=== PATIENT | female | born 1955 | race Caucasian/White ===

== ENCOUNTER 2017-04-28 10:10 | Observation (INO) ==
[2017-04-28] MEDS ORDERED: Aspirin 81 MG TAB.CHEW PO ONE (10:24)
--- NOTE | 2017-04-28 10:29 | Emergency Department Note ---
Disposition Clinical Impression: Mitral valve prolapse Chest pain Qualifiers: Chest pain type: unspecified Qualified Code(s): R07.9 - Chest pain, unspecified Dyspnea Qualifiers: Dyspnea type: unspecified Qualified Code(s): R06.00 - Dyspnea, unspecified Disposition: Admitted As Inpatient Condition: Good Referrals: Fly Stevenson DO [Primary Care Provider] - Time of Disposition: 13:56 Chest Pain HPI - General Chief Complaint: ED Chest Pain Stated Complaint: chest discomfort Time Seen by Provider: 04/28/17 10:15 Source: patient Limitations: no limitations Vital Signs Reviewed: Yes Nursing Notes Reviewed: Yes - History of Present Illness HPI Narrative: 61-year-old female presents to emergency department with 2 weeks history of chest pain, shortness of breath, fluttering in chest, arm tingling. Patient has history of mitral valve prolapse, TIAs, carotid stenosis. Patient came in today because she was concerned that this could be related to her heart. Patient states that her symptoms are now not necessarily related to exertion. Patient states that her mitral valve prolapse is being medically managed at this time, and there were no plans for surgery in the future. Severity scale (1-10): 0 - Related Data Home Medications Medication Instructions Recorded Confirmed Atorvastatin Calcium [Lipitor] 20 mg PO HS 08/31/16 04/28/17 Cetirizine HCl 10 mg PO DAILY 08/31/16 04/28/17 Cyanocobalamin (Vitamin B-12) 1,000 mcg PO 2XW 08/31/16 04/28/17 [Vitamin B12] Lisinopril [Zestril] 5 mg PO DAILY 08/31/16 04/28/17 Omeprazole [PriLOSEC] 20 mg PO DAILY 08/31/16 04/28/17 Carvedilol 12.5 mg PO BID 04/28/17 04/28/17 Clobetasol Propionate [Temovate] 15 gm TP HS 04/28/17 04/28/17 Gentamicin Oint [Garamycin] 1 appl TP HS 04/28/17 04/28/17 predniSONE [PredniSONE] 10 mg PO AD 04/28/17 04/28/17 Previous Rx's Medication Instructions Recorded Ibuprofen [Motrin] 600 mg PO Q6HR #20 tab 09/03/16 Allergies Allergy/AdvReac Type Severity Reaction Status Date / Time apixaban [From Eliquis] Allergy Hives Verified 04/28/17 10:11 cefdinir Allergy Hives Verified 04/28/17 10:11 codeine Allergy Hives Verified 04/28/17 10:11 naproxen [From Naprosyn] Allergy Hives Verified 04/28/17 10:11 Penicillins Allergy Hives Verified 04/28/17 10:11 rivaroxaban [From Xarelto] Allergy Hives Verified 04/28/17 10:11 Sulfa (Sulfonamide Allergy Hives Verified 04/28/17 10:11 Antibiotics) Warfarin [From Coumadin] Allergy Hives Verified 04/28/17 10:11 Chest Pain PMH - Past Medical History Medical history: Reports: CVA, GERD, hypertension, kidney stones, other Surgical history: Reports: cholecystectomy, hysterectomy, other Psychiatric history: Reports: no psych history - Social History Smoking Status: Never smoker Alcohol use: Reports: none Drug use: Reports: none Physical Exam General: Well Appearing 61-year-old female, in no acute distress Head: autraumatic, EOMI, no conjuncitval pallor, no scleral icterus, Mouth: oral mucous membranes moist Neck: neck soft, trachea midline Chest:: Equal chest wall rise Lungs: Normal lungs sounds bilaterally, no wheezes, no respiratory distress Heart: normal heart sounds, normal rate and rhythm, Abdomen: soft, non-tender, no rigidity, no guarding, no rebdound tenderness Lower Extremities: no pedal edema, calves non-tender Integumentary: Skin warm, dry, and intact Neuro: Alert and oriented to person place and time. GCS 15. No focal neurologic deficits on exam. Cranial nerves II through XII grossly intact. No pronator drift. Upper and lower sugar is 5 out of 5 strength bilaterally. Sensation intact throughout. Psych: normal affect, normal mood - General Limitations: no limitations General appearance: alert, in no apparent distress Course Vital Signs Temperature 97.7 F 04/28/17 10:11 Pulse Rate 78 04/28/17 10:11 Respiratory Rate 15 04/28/17 10:11 Blood Pressure 171/99 04/28/17 10:11 O2 Sat by Pulse Oximetry 96 04/28/17 10:11 Temperature 97.7 F 04/28/17 10:11 Pulse Rate 69 04/28/17 14:14 Respiratory Rate 16 04/28/17 14:14 Blood Pressure 131/99 04/28/17 14:14 O2 Sat by Pulse Oximetry 99 04/28/17 14:14 Oxygen Delivery Oxygen Delivery Room Air Chest Pain - MDM Narrative Medical decision making narrative: 61-year-old female presents to emergency department with concern for worsening shortness of breath, chest pain, chest fluttering, tingling down her left arm for the last couple weeks that has gradually worsened. This is concerning for ACS. An echocardiogram not reveal any acute ST changes suggestive of ischemia. Troponin was negative. Chest x-ray revealed mild nonspecific patchy reticulonodular densities that could represent possible bronchitis. Clinically , her lungs sound clear and she has not complained of any cough. Patient does have a past medical history of mitral valve prolapse. Has a echocardiogram that reveals elevated right ventricular pressures. At this time, this patient is no acute distress. However, she does have certain risk factors as she has atherosclerotic disease of the right carotid artery, history of myocardial infarction in her father at age of 73, hypertension. We obtained a CT scan of the head due to this patient's history of TIAs and sudden onset numbness and tingling. However, this numbness and tingling in the left arm is more associated with this patient's shortness of breath, chest pain, chest fluttering and I think this is more cardiac in nature. CT scan of the head did not reveal any intracranial hemorrhage. 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 I spoke with Dr. Parrish, the program director cable television that saw senior environmental technician, and he stated that he would recommend admission of this patient due to her risk factors and history of present illness. There is also concern about this patient's history of mitral valve prolapse and possible concern that her symptoms are getting worse with her condition. I spoke with Dr. Cervantes and my attending regarding this concern. I admitted the patient to the hospitalist and he agreed to accept this admission. I spoke with the patient at bedside and she agreed to come in for admission as well for further evaluation. Patient was symptomatically stable not in any acute distress at this time. Patient was given aspirin here in the emergency department. Chest X-Ray 04/28/17 10:24 IMPRESSION: Mild nonspecific patchy reticulonodular densities which could represent minimal basilar atelectasis or possible bronchitis/bronchiolitis. No lobar pneumonia. D/ / 04/28/2017 11:38:44 Sarbjit Molina MD / earlizette Interpreting Provider: Sarbjit Molina MD Head CT 04/28/17 10:49 IMPRESSION: 1. There is no acute intracranial hemorrhage or global mass effect. 2. 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 There is slight herniation of the left parietal cortex into this defect with subtle adjacent cortical atrophy. Overall this appears stable compared to the prior exam. D/ / 04/28/2017 12:19:10 Sarbjit Molina MD / amber Interpreting Provider: Sarbjit Molina MD Vital Signs Temperature 97.7 F 04/28/17 10:11 Pulse Rate 78 04/28/17 10:11 Respiratory Rate 15 04/28/17 10:11 Blood Pressure 171/99 04/28/17 10:11 O2 Sat by Pulse Oximetry 96 04/28/17 10:11 Temperature 97.7 F 04/28/17 10:11 Pulse Rate 66 04/28/17 12:54 Respiratory Rate 15 04/28/17 12:54 Blood Pressure 179/98 04/28/17 12:54 O2 Sat by Pulse Oximetry 99 04/28/17 12:54 Oxygen Delivery Oxygen Delivery Room Air - Medical Records Medical records reviewed: Yes I reviewed the patient's medical records. - Lab Data Lab results reviewed: Yes I reviewed the patient's lab results. Result diagrams: 04/28/17 10:37 04/28/17 10:37 Lab Results 04/28/17 04/28/17 04/28/17 Range/Units 10:37 10:37 10:37 WBC 4.6 (4.3-11.1) K/mcL RBC 4.47 (3.82-4.97) M/mcL Hgb 12.6 (11.5-15.4) g/dL Hct 39.4 (35.3-44.9) % MCV 88.1 (83.0-100.0) fL MCH 28.2 (28.0-33.3) pg MCHC 32.0 (31.6-35.5) g/dL RDW 13.0 (11.5-14.5) % Plt Count 202 (140-400) K/mcL MPV 10.7 (9.4-12.4) fL Immature Gran % 0.2 (0-4) % Seg Neutrophils % 61.0 % Lymphocytes % 25.7 % Monocytes % 9.1 % Eosinophils % 3.3 % Basophils % 0.7 % Neutrophils # 2.8 (1.6-8.9) K/mcL Lymphocytes # 1.2 (0.6-4.6) K/mcL Monocytes # 0.4 (0.0-1.3) K/mcL Eosinophils # 0.2 (0.0-0.6) K/mcL Basophils # 0.0 (0.0-0.2) K/mcL PT 10.7 (9.4-12.1) Seconds INR 1.0 APTT 28.8 (26.0-36.0) Seconds D-Dimer 487 (0-500) ng/mLFEU Sodium 141 (136-145) mEq/L Potassium 4.0 (3.5-4.5) mEq/L Chloride 107 (98-109) mEq/L Carbon Dioxide 27 (19-29) mEq/L BUN 15 (7-20) mg/dL Creatinine 0.64 (0.57-1.11) mg/dL Est GFR ( Amer) > 60 (> 60) Est GFR (Non-Af Amer) > 60 (> 60) BUN/Creatinine Ratio 23 (6-26) Glucose 97 (70-99) mg/dL Calculated Osmolality 293 (280-300) Calcium 9.0 (8.6-10.8) mg/dL Troponin I (0-0.03) ng/mL 04/28/17 Range/Units 10:37 WBC (4.3-11.1) K/mcL RBC (3.82-4.97) M/mcL Hgb (11.5-15.4) g/dL Hct (35.3-44.9) % MCV (83.0-100.0) fL MCH (28.0-33.3) pg MCHC (31.6-35.5) g/dL RDW (11.5-14.5) % Plt Count (140-400) K/mcL MPV (9.4-12.4) fL Immature Gran % (0-4) % Seg Neutrophils % % Lymphocytes % % Monocytes % % Eosinophils % % Basophils % % Neutrophils # (1.6-8.9) K/mcL Lymphocytes # (0.6-4.6) K/mcL Monocytes # (0.0-1.3) K/mcL Eosinophils # (0.0-0.6) K/mcL Basophils # (0.0-0.2) K/mcL PT (9.4-12.1) Seconds INR APTT (26.0-36.0) Seconds D-Dimer (0-500) ng/mLFEU Sodium (136-145) mEq/L Potassium (3.5-4.5) mEq/L Chloride (98-109) mEq/L Carbon Dioxide (19-29) mEq/L BUN (7-20) mg/dL Creatinine (0.57-1.11) mg/dL Est GFR ( Amer) (> 60) Est GFR (Non-Af Amer) (> 60) BUN/Creatinine Ratio (6-26) Glucose (70-99) mg/dL Calculated Osmolality (280-300) Calcium (8.6-10.8) mg/dL Troponin I 0.01 (0-0.03) ng/mL - Radiology Data Radiology results reviewed: Yes I reviewed the patient's radiology results. - EKG Data EKG attestation: Yes I reviewed and interpreted this EKG. EKG results narrative: Ventricular rate 72 bpm, VT interval 149 ms, QRS duration 96, QT 387 ms, QTC 411 ms, normal axis. Sinus rhythm with a ventricular rate of 72 bpm. There are no ischemic ST changes noted on this electrocardiogram. This study was compared to one performed on September 12, 2016 Heart Score - Score History: Slightly Suspicious EKG: Normal Age: 45-65 Risk Factors: Equal/Greater than 3 risk factor or history of atherosclerotic disease Troponin: Less than normal limit HEART Score Total: 3 Attestation Statement - Attestation Attestation: I, Rivas Lopez DO, examined this patient [id number] and my medical decision-making was reviewed with Dr. Deepak Alvarez, Resident Physician. I agree with the documented findings, disposition and treatment plan as described except to the extent set forth below. Please see my progress notes for details. 61-year-old female presents emergency room for evaluation of intermittent exertional dyspnea. Vital signs on presentation otherwise unremarkable. Lungs are clear heart is regular abdomen is soft. Patient has no pitting edema on physical exam. She is alert she is oriented she speaks in full sentences. Her main concern for presentation her today is that she had tingling in her left arm. She is a remote history of a TIA with no official diagnosis or evaluation. Patient did have carotid ultrasounds done within the last 5 years ago which show some mild stenosis in the right carotid artery. Patient physical exam here has no pain on movement of the neck no reproducible neurologic symptoms her pupils are equal round and reactive to light her ocular muscles are intact. She has no signs of facial asymmetry. Her EKG is normal in comparison to previous. Currently she has no chest pain or shortness of breath. The symptoms appear to be intermittent and occasionally with exertion. Patient does have mitral valve prolapse. She has not had an echo or stress test performed echo showed left ventricular ejection fraction of 60%. She does have mitral regurg as well as aortic regurgitation. Also has mild pulmonary hypertension. Chest x-ray shows possibility of bronchitis. Discussion was had with the program director cable television and then reevaluation with the patient with CT imaging results. Discussed disposition. See detailed documentation of physical exam, medical intervention, medical decision-making and disposition and the resident physician's note [id number] Patient discussed with cardiology as well as hospitalist for admission. Patient will be evaluated for pulmonary congestion secondary to mitral valve regurgitation and aortic regurgitation this time. No other concerns or issues noted in his treatment course. Hospitals happy to admit for definitive management
[2017-04-28 10:48] LABS: Basophils % 0.7 %; Eosinophils # 0.2 K/mcL (0.0-0.6); Eosinophils % 3.3 %; Hematocrit 39.4 % (35.3-44.9); Hemoglobin 12.6 g/dL (11.5-15.4); Immature Granulocytes % 0.2 % (0-4); Lymphocytes # 1.2 K/mcL (0.6-4.6); Lymphocytes % 25.7 %; Mean Corpuscular Hemoglobin 28.2 pg (28.0-33.3); Mean Corpuscular Volume 88.1 fL (83.0-100.0); Mean Platelet Volume 10.7 fL (9.4-12.4); Monocytes # 0.4 K/mcL (0.0-1.3); Monocytes % 9.1 %; Neutrophils # 2.8 K/mcL (1.6-8.9); Platelet Count 202 K/mcL (140-400); Red Blood Count 4.47 M/mcL (3.82-4.97)
[2017-04-28 10:58] LABS: Prothrombin Time 10.7 Seconds (9.4-12.1)
[2017-04-28 11:00] LABS: Activated Partial Thrombo Time 28.8 Seconds (26.0-36.0); BUN/Creatinine Ratio 23 (6-26); Blood Urea Nitrogen 15 mg/dL (7-20); Carbon Dioxide 27 mEq/L (19-29); Chloride 107 mEq/L (98-109); Glucose 97 mg/dL (70-99); Osmolality,Calculated 293 (280-300); Sodium 141 mEq/L (136-145); eGFR For African Americans > 60 (> 60); eGFR For Non-African Americans > 60 (> 60)
--- NOTE | 2017-04-28 14:44 | Internal Med History&Physical ---
Date of Encounter: 04/28/17 Time of Encounter: 14:42 Assessment and Plan (1) Chest pain Current visit: Yes Status: Acute 61, female Admitted with chest pain. She has multiple comorbid factors. Admitted with chest pain. Echocardiogram: 09/29/2016: Ejection fraction 60%, RVSP 38, mildly dilated left atrium, [id number] aortic regurgitation Carotid ultrasound: Bilateral carotid no stenosis. Plan: -Admitted as observation. -We will resume home medication. -If the 3 troponins are negative then please consider stress test. -Stress test is positive please call cardiology. -If stress test is negative patient can go home but patient needs a follow up with cardiology/pulmonary as her RVSP is 38 -I have explained this point the patient and patient verbalized understanding. -I examined this patient in room #32 in the emergency room. Of note: This patient has a RVSP of 38. This patient is taking steroids and not sure what is the reason for the same. Qualifiers: Chest pain type: unspecified Qualified Code(s): R07.9 - Chest pain, unspecified (2) Dyspnea Current visit: Yes Status: Acute Likely secondary to right-sided pathology. Qualifiers: Dyspnea type: unspecified Qualified Code(s): R06.00 - Dyspnea, unspecified (3) Mitral valve prolapse Current visit: Yes Status: Acute Asymptomatic (4) DVT prophylaxis Current visit: Yes Status: Acute scd Medical decision making. This patient has a moderate to severe risk of worsening in spite of being on appropriate medication due to underlying comorbid conditions. Internal Medicine - H&P: HPI Chief complaint: Chest pain Admitted From: Emergency Dept Plans for Post Hospital Care: Home History of present illness: PCP: Dr. Ponce. Brief past medical history: Hypertension, GERD, old CVA, previous renal stones. History of present illness: Patient is ongoing chest pain for 2 weeks which is kind of a generalized in nature. Patient complains that since last evening she has a more specific left precordial chest pain which is nonradiating, localized , associated with the movement and relieved by rest. Patient to call her primary care provider this morning but unfortunately primary care provider's office told patient to go to the emergency room as this was the chest pain issue. Patient also complains that occasionally she will feel nauseous. Patient was declining that she has abdominal pain, nausea, vomiting, dizziness and diarrhea. Workup in the emergency department: Patient was evaluated in the emergency department. Basic labs were drawn. Her symptoms was persistent. Reason for admission: Chest pain rule out ACS. Family history: Noncontributory Past Med Surg Social Fam HX - Past Medical History Medical history: CVA, GERD, hypertension, kidney stones, other Psychiatric history: no psych history - Past Surgical History Surgical History: cholecystectomy, hysterectomy, other - Social History Smoking Status: Never smoker Smokeless Tobacco Status: No Alcohol use: none Drug use: none Internal Medicine - H&P: Meds Atorvastatin Calcium [Lipitor] 20 mg PO HS 08/31/16 [History] Cetirizine HCl 10 mg PO DAILY 08/31/16 [History] Cyanocobalamin (Vitamin B-12) [Vitamin B12] 1,000 mcg PO 2XW 08/31/16 [History] Lisinopril [Zestril] 5 mg PO DAILY 08/31/16 [History] Omeprazole [PriLOSEC] 20 mg PO DAILY 08/31/16 [History] Ibuprofen [Motrin] 600 mg PO Q6HR #20 tab 09/03/16 [Rx] Carvedilol 12.5 mg PO BID 04/28/17 [History] Clobetasol Propionate [Temovate] 15 gm TP HS 04/28/17 [History] Gentamicin Oint [Garamycin] 1 appl TP HS 04/28/17 [History] predniSONE [PredniSONE] 10 mg PO AD 04/28/17 [History] 3 Allergy/AdvReac Type Severity Reaction Status Date / Time apixaban [From Eliquis] Allergy Hives Verified 04/28/17 10:11 cefdinir Allergy Hives Verified 04/28/17 10:11 codeine Allergy Hives Verified 04/28/17 10:11 naproxen [From Naprosyn] Allergy Hives Verified 04/28/17 10:11 Penicillins Allergy Hives Verified 04/28/17 10:11 rivaroxaban [From Xarelto] Allergy Hives Verified 04/28/17 10:11 Sulfa (Sulfonamide Allergy Hives Verified 04/28/17 10:11 Antibiotics) Warfarin [From Coumadin] Allergy Hives Verified 04/28/17 10:11 All Systems PM: A 10-system review of systems was performed and is negative for pertinent findings except as documented above in the HPI. - Constitutional Constitutional: no chills, no fever(s), no night sweats - EENT Eyes: no change in vision, no discharge, no pain, no photophobia Ears: no ear discharge, no ear pain, no tinnitus Nose, mouth and throat: no dysphagia, no nasal discharge, no neck pain, no sore throat - Cardiovascular Cardiovascular ROS IM: chest pain, diaphoresis, dyspnea, lightheadedness, no palpitations, no syncope - Respiratory Respiratory: no cough, no dyspnea, no wheezing, no excessive phlegm production - Gastrointestinal Gastrointestinal: no abdominal pain, no diarrhea, no hematemesis, no hematochezia, no melena, no nausea, no vomiting - Genitourinary Genitourinary: no change in urinary stream, no dysuria, no flank pain, no hematuria - Musculoskeletal Musculoskeletal ROS IM: no numbness, no tingling - Integumentary Integumentary IM: no rash, no unusual bruising - Neurological Neurological ROS: no confusion, no convulsions, no focal weakness, no numbness, no tingling, no tremor(s) - Hematologic/Lymphatic Hematologic/Lymphatic: no easy bruising - Constitutional Vitals: Temp Pulse Resp BP Pulse Ox 97.7 F 69 16 131/99 99 04/28/17 10:11 04/28/17 14:14 04/28/17 14:14 04/28/17 14:14 04/28/17 14:14 General appearance: Present: A&O X 3, pleasant, no acute distress, answers questions appropriately - Head Head exam: Present: atraumatic, normocephalic - Eye Eye exam: Present: PERRL, conjuntiva pink, sclera anicteric Pupils: Present: PERRL - Neck Neck exam general surgery: Present: supple, trachea midline. Absent: lymphadenopathy - Respiratory Respiratory exam: Present: CTAB. Absent: accessory muscle use, rales, rhonchi, wheezes - Cardiovascular Cardiovascular exam: Present: RRR, +S1, +S2. Absent: diastolic murmur, gallop, rubs, systolic murmur - GI/Abdominal GI/Abdominal exam: Present: normal bowel sounds, soft, no peritoneal signs. Absent: distended, tenderness - Extremities Exam Extremities exam: Present: warm, radial pulses palpable and symmetrical. Absent : calf tenderness, cyanotic, pedal edema - Neurological Exam Neurological exam: Present: CN II-XII intact, oriented X3, no focal deficits. Absent: pronater drift, facial droop, speech deficit - Skin Skin exam: Present: dry, intact Internal Med - H&P Results - Labs CBC & Chem 7: 04/28/17 10:37 04/28/17 10:37
[2017-04-28] MEDS ORDERED: Naloxone 0.4 MG/ML INJ IVP PRN (14:45)
[2017-04-28] MEDS ORDERED: Mag Hydrox/Al Hydrox/Simeth 30 ML UDC PO PRN (14:45)
[2017-04-28] MEDS ORDERED: Acetaminophen 325 MG TABLET PO PRN (14:45)
[2017-04-28] MEDS: predniSONE 10 MG TABLET PO SCH (17:17)
--- NOTE | 2017-04-28 18:53 | Electrocardiograph Report ---
[place] [id number] Test Date: 2017-04-28 Pat Name: Jazmyne Gooden Department: 102 Room: 3B Gender: F Internal Medicine Nurse Practitioner: Vic : 1955 Requested By: Deepak Alvarez Order Number: [id number] Reading MD: Papi Parrish MD Measurements Intervals [place] Rate: 72 P: 54 DE: 149 QRS: 12 QRSD: 96 T: 37 QT: 387 QTc: 411 Interpretive Statements SINUS RHYTHM Poor R wave progression Electronically Signed On 04-28-2017 18:52:03 EST by Papi Parrish MD
[2017-04-28] MEDS ORDERED: CLOBETASOL PROPIONATE 15 GM TUBE TP SCH (21:00)
[2017-04-29 04:21] LABS: INR 1.1; Prothrombin Time 11.3 Seconds (9.4-12.1)
[2017-04-29 04:24] LABS: Activated Partial Thrombo Time 28.7 Seconds (26.0-36.0)
[2017-04-29 04:38] LABS: Alanine Aminotransferase 34 Units/L (0-55); Albumin 3.5 g/dL (3.5-5.0); Albumin/Globulin Ratio 1.2 (1.1-2.2); Alkaline Phosphatase 95 Units/L (38-126); Aspartate Amino Transferase 21 Units/L (5-34); BUN/Creatinine Ratio 24 (6-26); Bilirubin,Total 0.6 mg/dL (0.2-1.2); Blood Urea Nitrogen 15 mg/dL (7-20); Calcium 8.8 mg/dL (8.6-10.8); Carbon Dioxide 24 mEq/L (19-29); Chloride 108 mEq/L (98-109); Chol/HDL Ratio 2.1 (0-4.9); Cholesterol 144 mg/dL (< 200); Globulin 2.9 g/dL (2.4-3.5); Glucose 109 mg/dL (70-99); HDL Cholesterol 70 mg/dL (40-59); LDL Cholesterol,Calculated 68 mg/dL (0-99); Magnesium 2.1 mg/dL (1.6-2.6); Osmolality,Calculated 293 (280-300); Phosphorous 3.9 mg/dL (2.3-4.7); Potassium 4.1 mEq/L (3.5-4.5); Sodium 141 mEq/L (136-145); Total Protein 6.4 g/dL (6.0-8.3); Triglycerides 29 mg/dL (< 150); eGFR For African Americans > 60 (> 60); eGFR For Non-African Americans > 60 (> 60)
[2017-04-29 04:49] LABS: Basophils % 0.2 %; Eosinophils % 0.2 %; Hematocrit 38.2 % (35.3-44.9); Hemoglobin 12.2 g/dL (11.5-15.4); Immature Granulocytes % 0.2 % (0-4); Lymphocytes % 20.6 %; Mean Corpuscular HGB Conc 31.9 g/dL (31.6-35.5); Mean Corpuscular Hemoglobin 27.9 pg (28.0-33.3); Mean Corpuscular Volume 87.4 fL (83.0-100.0); Mean Platelet Volume 11.3 fL (9.4-12.4); Monocytes # 0.3 K/mcL (0.0-1.3); Monocytes % 5.5 %; Neutrophils # 3.4 K/mcL (1.6-8.9); Platelet Count 202 K/mcL (140-400); Red Blood Count 4.37 M/mcL (3.82-4.97); Segmented Neutrophils % 73.3 %
[2017-04-29] MEDS ORDERED: [UNRECOGNIZED DRUG - OTHER] TP SCH (09:15)
[2017-04-29] MEDS: CLOBETASOL PROPIONATE 15 GM TUBE TP SCH ×3 (09:20→20:07)
[2017-04-29] MEDS ORDERED: Regadenoson 0.4 MG/5 ML SYRINGE IVP ONE (09:47)
[2017-04-29] MEDS: Loratadine 10 MG TABLET PO SCH (14:24)
[2017-04-29] MEDS: predniSONE 10 MG TABLET PO SCH (14:29)
--- NOTE | 2017-04-29 17:41 | Internal Med Progress Note ---
Date of Encounter: 04/29/17 Time of Encounter: 15:25 - Assessment and plan (1) Chest pain Current Visit: Yes Status: Acute Assessment and plan: Patient reports generalized chest pain for 2 weeks. Patient reports that last evening prior to arrival, she had left chest pain is nonradiating, associated with movement, relieved by rest. She reports intermittent nausea, no vomiting, diarrhea, diaphoresis or shortness of breath. She denies chest pain since prior to arrival. Chest x-ray shows mild, nonspecific densities which could be atelectasis or possible bronchitis bronchiolitis. There is no pneumonia noted. Patient denies cough, fever, chills, burning in chest, or shortness of breath that would indicate a viral or bacterial process. Troponins were negative 3. EKG was sinus rhythm with a rate of 72, GA interval 149, QRS 96, QTC 411. Echocardiogram in September, as stated above. Stress test was positive for ischemia, there is a small sized, mildly intense reversible anteroapical defect consistent with mild ischemia. Patient has a gated EF of 55%. There is no evidence of TID, no LV dilation, no high risk features. Cardiology has been consulted, they will see patient in the morning. Patient is aware of this and questions were answered. 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 Qualifiers: Chest pain type: unspecified Qualified Code(s): R07.9 - Chest pain, unspecified (2) Mitral valve prolapse Current Visit: Yes Status: Acute Assessment and plan: Asymptomatic. Patient will see cardiology tomorrow. Patient had echocardiogram in September, that showed normal systolic function with an LVEF of 60%, mild LV DD, mildly dilated left atrium, [id number] AR, mild MR, mild pulmonary hypertension with an estimated RVSP 38. (3) DVT prophylaxis Current Visit: Yes Status: Acute Assessment and plan: Early ambulation. SCDs ordered. - Subjective Interval history: Patient was seen and assessed at 1525 this afternoon. She denies any chest pain. She states that she feels better today. Denies any nausea, vomiting, diaphoresis, diarrhea, abdominal pain, dizziness, chest pain or shortness of breath, syncope or near-syncope. She is aware that she will see cardiology today and that she had an abnormal stress test. All questions were answered, patient was likely be discharged tomorrow after she is seen by cardiology. - Constitutional Vitals: Temp Pulse Resp BP Pulse Ox 98.7 F 70 15 158/85 97 04/29/17 15:21 04/29/17 15:21 04/29/17 15:21 04/29/17 15:21 04/29/17 15:21 General appearance: Present: cooperative, A&O X 3, pleasant, no acute distress, answers questions appropriately - Head Head exam: Present: atraumatic, normocephalic - Eye Eye exam: Present: normal appearance, conjuntiva pink, sclera anicteric. Absent : nystagmus - Neck Neck exam general surgery: Present: supple, trachea midline - Respiratory Respiratory exam: Present: CTAB. Absent: accessory muscle use, decreased breath sounds, rales, respiratory distress, rhonchi, wheezes - Cardiovascular Cardiovascular exam: Present: RRR, +S1, +S2. Absent: diastolic murmur, gallop, rubs, systolic murmur - GI/Abdominal GI/Abdominal exam: Present: normal bowel sounds, soft. Absent: distended, hepatomegaly, tenderness - Extremities Exam Extremities exam: Present: normal capillary refill, normal inspection, warm, radial pulses palpable and symmetrical. Absent: calf tenderness, cyanotic, pedal edema, tenderness - Neurological Exam Neurological exam: Present: alert, oriented X3, no focal deficits. Absent: facial droop, speech deficit - Skin Skin exam: Present: dry, intact, normal color, warm. Absent: rash Internal Medicine: Result - Labs CBC & Chem 7: 04/29/17 02:56 04/29/17 02:56 Labs: Short CBC 04/29/17 Range/Units 02:56 WBC 4.7 (4.3-11.1) K/mcL Hgb 12.2 (11.5-15.4) g/dL Hct 38.2 (35.3-44.9) % Plt Count 202 (140-400) K/mcL Neutrophils # 3.4 (1.6-8.9) K/mcL BMP 04/29/17 02:56 Sodium 141 Potassium 4.1 Chloride 108 Carbon Dioxide 24 BUN 15 Creatinine 0.63 Glucose 109 H Calcium 8.8 Cardiac Enzymes 04/28/17 04/29/17 Range/Units 21:47 02:56 Troponin I 0.00 0.01 (0-0.03) ng/mL Liver Function 04/29/17 Range/Units 02:56 Total Bilirubin 0.6 (0.2-1.2) mg/dL AST 21 (5-34) Units/L ALT 34 (0-55) Units/L Alkaline Phosphatase 95 (38-126) Units/L Albumin 3.5 (3.5-5.0) g/dL - ABG Interpretation ABG results: PT/INR, D-dimer PT 11.3 Seconds (9.4-12.1) 04/29/17 02:56 D-Dimer 487 ng/mLFEU (0-500) 04/28/17 10:37 - VTE Documentation of Mechanical Device: Intermittent pneumatic compression device Consult Discharge Plan - Plan Referrals: Fly Stevenson DO [Primary Care Provider] -
[2017-04-29] MEDS ORDERED: Gentamicin Oint 15 GM TUBE TP SCH (21:00)
--- NOTE | 2017-04-30 06:30 | Cardiology Consult Note ---
<Nick Pryor - Last Filed: 04/30/17 08:44> Date of Encounter: 04/30/17 Time of Encounter: 06:30 Assessment and Plan (1) Chest pain Status: Acute Per Cardiology: Troponins negative 4. Atypical discomfort that appears to be more palpitations. Denies exertional chest pain. Patient actually experiencing increased dyspnea on exertion and fatigue with significant decline in her physical activities. Qualifiers: Chest pain type: unspecified Qualified Code(s): R07.9 - Chest pain, unspecified (2) Abnormal nuclear stress test Status: Acute Per Cardiology: Non-exercise nuclear stress test showed small mild intensity reversible anterior apical defect showing mild ischemia. Echo from September 2016 showed EF 60% , moderate diastolic dysfunction, mild to moderate AR, mild MR, mild pulmonary hypertension, NSWMA. I had a lengthy discussion with patient regarding potential further ischemic evaluation, at this point patient prefers to proceed with left heart catheterization. Will discuss and review with Dr. Tubbs with plans for catheterization most likely tomorrow. All questions answered. Patient verbalized understanding and agreed with plan. (3) Diastolic dysfunction Status: Chronic Per Cardiology: Moderate diastolic dysfunction on September 2016. BNP only 109. Systolic blood pressures in the 150s. On PAIGE inhibitor and beta marianne. Heart rates in the 50s to 60s. We'll titrate PAIGE inhibitor her now for blood pressure optimization. Euvolemic on exam. Discussion w patient/family: The assessment and plan as outlined above was discussed with the patient who expressed understanding and agreement. All questions were answered. Thank you for involving us in the care of your patient. Please call with any questions. History of Present Illness Consult date: 04/30/17 Requesting physician: Hermila Davis Consult reason: + ST Chief complaint: Fatigue, LUCERO History of present illness: Ms. Gooden is a 61 year old female with relevant past medical history of hypertension, GERD, TIA x 2. Denies any nicotine abuse history. Reports family history with father with LA and stenting in his 70s. Cardiology consult for positive stress test. Patient reports over the past 3-4 weeks increase in fatigue and dyspnea on exertion. Reports prior to one month ago very active and walking daily at least 3 miles with no symptoms. She reports she is now not been walking due to fatigue. Additionally did a 40 mile bike ride in March 2017 with with no difficulties. She now reports dyspnea on exertion climbing steps. She denies any chest pain, however does report "chest fluttering sensations that lasts for a few seconds and subside". These symptoms seem to occur randomly. She denies any history of CAD. Denies any recent infectious process. Denies any active bleeding or blood loss. Denies any recent syncope or falls. Past Med Surg Social Fam HX - Past Medical History Attestation: Yes The following information was validated with the patient. Source: patient, old records reviewed Medical history: CVA, GERD, hypertension, kidney stones, other Psychiatric history: no psych history - Past Surgical History Surgical History: cholecystectomy, hysterectomy, other - Social History Smoking Status: Never smoker Smokeless Tobacco Status: No Alcohol use: none Drug use: none - Family History Mother Hx Family Cardiac Disorders: Yes (HTN) Hx Family GI Disorders: Yes (ulcers) Medications and Allergies Atorvastatin Calcium [Lipitor] 20 mg PO HS 08/31/16 [History] Cetirizine HCl 10 mg PO DAILY 08/31/16 [History] Cyanocobalamin (Vitamin B-12) [Vitamin B12] 1,000 mcg PO 2XW 08/31/16 [History] Lisinopril [Zestril] 5 mg PO DAILY 08/31/16 [History] Omeprazole [PriLOSEC] 20 mg PO DAILY 08/31/16 [History] Ibuprofen [Motrin] 600 mg PO Q6HR #20 tab 09/03/16 [Rx] Carvedilol 12.5 mg PO BID 04/28/17 [History] Clobetasol Propionate [Temovate] 15 gm TP HS 04/28/17 [History] Gentamicin Oint [Garamycin] 1 appl TP HS 04/28/17 [History] predniSONE [PredniSONE] 10 mg PO AD 04/28/17 [History] Nitroglycerin 0.4 mg SL Q5MIN PRN #20 tab.subl 04/30/17 [Rx] 3 Allergy/AdvReac Type Severity Reaction Status Date / Time apixaban [From Eliquis] Allergy Hives Verified 04/28/17 10:11 cefdinir Allergy Hives Verified 04/28/17 10:11 codeine Allergy Hives Verified 04/28/17 10:11 naproxen [From Naprosyn] Allergy Hives Verified 04/28/17 10:11 Penicillins Allergy Hives Verified 04/28/17 10:11 rivaroxaban [From Xarelto] Allergy Hives Verified 04/28/17 10:11 Sulfa (Sulfonamide Allergy Hives Verified 04/28/17 10:11 Antibiotics) Warfarin [From Coumadin] Allergy Hives Verified 04/28/17 10:11 All Systems Review: A 10-system review of systems was performed and is negative for pertinent findings except as documented above in the HPI. - Constitutional Constitutional: fatigue - Cardiovascular Cardiovascular: as per HPI, dyspnea on exertion, palpitations Physical Examination Vital Signs, Last 4 Hours Temp Pulse Resp BP Pulse Ox 04/30/17 03:40 97.7 F 67 16 159/79 98 General: Conversant, No Apparent Distress HEENT: Atraumatic, Normocephaly, Mucus Membranes Moist Neck: No JVD, Normal carotid pulses Cardiac: Reg Rate and Rhythm, Normal S1 and S2, No Murmur Lungs: Normal Breath Sounds, No Wheeze, Rales, Rhonchi Neuro: Alert and responsive, No focal deficits noted Abdomen: Soft, Non-Tender Skin: No rashes noted on visualized skin Musculoskeletal: No Chest Wall Tenderness Extremities: No Clubbing, No Cyanosis, No Edema, Normal Pulses Results 04/29/17 02:56 04/29/17 02:56 Laboratory Tests 04/28/17 04/28/17 04/28/17 10:37 10:37 16:08 INR D-Dimer 487 Creatinine Est GFR (Non-Af Amer) Magnesium AST ALT Troponin I 0.01 0.01 B-Natriuretic Peptide LDL Cholesterol, Calc 04/28/17 04/29/17 04/29/17 21:47 02:56 02:56 INR 1.1 D-Dimer Creatinine Est GFR (Non-Af Amer) Magnesium AST ALT Troponin I 0.00 0.01 B-Natriuretic Peptide LDL Cholesterol, Calc 04/29/17 04/29/17 02:56 02:56 INR D-Dimer Creatinine 0.63 Est GFR (Non-Af Amer) > 60 Magnesium 2.1 AST 21 ALT 34 Troponin I B-Natriuretic Peptide 109 H LDL Cholesterol, Calc 68 ITS Impressions Chest X-Ray 04/28/17 10:24 IMPRESSION: Mild nonspecific patchy reticulonodular densities which could represent minimal basilar atelectasis or possible bronchitis/bronchiolitis. No lobar pneumonia. D/ / 04/28/2017 11:38:44 Sarbjit Molina MD / amber Interpreting Provider: Sarbjit Molina MD Head CT 04/28/17 10:49 IMPRESSION: 1. There is no acute intracranial hemorrhage or global mass effect. 2. 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 There is slight herniation of the left parietal cortex into this defect with subtle adjacent cortical atrophy. Overall this appears stable compared to the prior exam. D/ / 04/28/2017 12:19:10 Sarbjit Molina MD / amber Interpreting Provider: Sarbjit Molina MD Active Medications Acetaminophen (Tylenol) 650 mg PO Q6HR PRN PRN Reason: Mild Pain (1-3) Stop: 10/28/17 14:46 Al Hydrox/Mg Hydrox/Simethicone (Maalox) 15 ml PO Q6HR PRN PRN Reason: Dyspepsia Stop: 10/28/17 14:46 Atorvastatin Calcium (Lipitor) 20 mg PO HS [facility] Stop: 10/28/17 21:01 Last Admin: 04/29/17 21:37 Dose: 20 mg Carvedilol (Coreg) 12.5 mg PO BID [facility]IMA Stop: 10/28/17 21:01 Last Admin: 04/29/17 21:37 Dose: 12.5 mg Clobetasol Propionate (Temovate 0.05%) 1 appl TP TID [facility] Stop: 10/29/17 09:01 Last Admin: 04/29/17 20:07 Dose: 1 appl Cyanocobalamin (Vitamin B12) 1,000 mcg PO 2XW [facility] Stop: 10/31/17 09:01 Gentamicin Sulfate (Garamycin) 1 appl TP HS [facility] Stop: 10/29/17 09:16 Last Admin: 04/29/17 21:37 Dose: 1 appl Lisinopril (Zestril) 5 mg PO DAILY [facility]A PRN Reason: Protocol Stop: 10/28/17 15:01 Last Admin: 04/29/17 14:24 Dose: 5 mg Loratadine (Claritin) 10 mg PO DAILY [facility] Stop: 10/29/17 09:16 Last Admin: 04/29/17 14:24 Dose: 10 mg Naloxone HCl (Narcan) 0.4 mg IVP Q2MIN PRN PRN Reason: Opioid Reversal Stop: 10/28/17 14:46 Omeprazole (Prilosec) 20 mg PO DAILY [facility] PRN Reason: Protocol Stop: 10/29/17 09:01 Last Admin: 04/29/17 14:25 Dose: 20 mg Prednisone (Prednisone) 10 mg PO AD [facility] Stop: 10/28/17 15:01 Last Admin: 04/29/17 14:29 Dose: 10 mg - Imaging and Cardiology Stress Test: report reviewed Echo: report reviewed - EKG Interpretation EKG results cardiology: personally reviewed (Sinus rhythm in the 70s), normal ECG, sinus rhythm, no diagnostic ischemia, other (Telemetry shows average heart rate 67, sinus rhythm, occasional PVCs, no significant events noted, currently sinus rhythm in the 60) Consult Discharge Plan - Plan Instructions: Nitroglycerin, Rapid Release (By mouth), Chest Pain (DC), Heart Healthy Diet (DC), Influenza Vaccine (GEN), Chest Pain, Occupational Safety And Health Manager (GEN) Additional Instructions: Please follow up with your PCP and with cardiology as scheduled. Return to the ER immediately if your symptoms return or for any other problems or concerns. Take your normal home medications. Use nitroglycerin under your tongue as needed for chest pain. Take 1 tablet every 5 minutes until your pain subsides. Do not take more than 5 tablets. Return to your normal diet and activities as tolerated. Follow-up appointments: If there is not an appointment listed below, please call your physician and schedule a follow-up appointment. If you have congestive heart failure and your symptoms return, make an appointment with your physician. Medication List: Carry an up to date list of medications you are taking at all time. We have given you an updated medication list including any new medications that you have been prescribed. Please provide that list to your primary provider Symptoms: If your condition changes or you experience any of the following symptoms, notify your physician immediately: Unusual or worsening pain, fever, persistent nausea and vomiting, bleeding, increase in swelling (especially in your legs), sudden weight gain, extreme dizziness, chest pain, increased drainage or redness from a wound or incision. Go to the emergency department if you experience a problem with breathing. Weights: If you have a history of swelling or shortness of breath, weigh yourself daily and notify your physician if you have a weight gain of two or more pounds in one day or 5 or more pounds in a week. If you experience any of the warning signs for stroke: Sudden numbness or weakness of the face, arm or leg; especially on one side of the body, sudden confusion, trouble speaking or understanding, sudden trouble seeing in one or both eyes, sudden trouble walking, dizziness, loss of balance or coordination, sudden sever headache with no cause; Call 911 or go to the emergency room. Stroke is a medical emergency. Some risk factors for stroke: Age, cigarette smoking, diabetes, excessive alcohol consumption, family history , high blood pressure, overweight, physical inactivity, prior stroke, heart attack, diagnosis of carotid artery stenosis or other artery disease. If you smoke, STOP: Smoking or tobacco use significantly increases your risk of heart and lung disease. Your chance of disease greatly increases if you continue to smoke. For more information, call the [place] tobacco quit line for smoking cessation QUIT-NOW ( ) Referrals: Fly Stevenson DO [Primary Care Provider] - Prescriptions: Nitroglycerin 0.4 mg SL Q5MIN PRN #20 tab.subl PRN Reason: Chest Pain <Wilfrid Tubbs - Last Filed: 04/30/17 21:37> Date of Encounter: 04/30/17 - Attending Attestation I have personally performed a face to face evaluation on this patient. I have reviewed and agree with the care plan. History and Exam by me shows: Pt complains of heart racing and skipping, which last under five seconds, come and go spontaneously, present on and off over the last three weeks. She reports three week history of fatigue, and shortness of breath with exertion. She has discontinued daily exercise due to fatigue. She underwent stress imaging, which revealed small anterior reversible ischemia. IMP/Plan 1. Abnormal stress test with reversible ischemia, discussed LHC/Poss versus medical tx, pt elects to continue with medical tx, discharge to home care, will follow up with garment presser of her choice at [facility]. Assessment and Plan Discussion w patient/family: The assessment and plan as outlined above was discussed with the patient and/or family members who expressed understanding and agreement. All questions were answered. Thank you for involving us in the care of your patient. Please call with any questions. History of Present Illness History of present illness: Ms. Gooden is a 61 year old female All Systems Review: A 10-system review of systems was performed and is negative for pertinent findings except as documented above in the HPI. Results 04/29/17 02:56 04/29/17 02:56
[2017-04-30] MEDS ORDERED: Nitroglycerin 0.4 MG TAB.SUBL SL PRN (10:13)
--- NOTE | 2017-04-30 10:16 | Event Note ---
Date of Encounter: 04/30/17 Time of Encounter: 10:00 - Cardiology Event Note Patient discussed and reviewed with Dr. Tubbs and recommendations for catheterization tomorrow. However, I discussed with patient and after her discussion with her she prefers to go home today and follow-up as outpatient at [facility] to complete her catheterization at that facility. Reports had TIA workup at [facility] and prefers to go there for her procedure. Chest pain-free. All questions answered. Recommend provide nitroglycerin prescription at discharge. Patient will follow up with [facility] cardiology. We' ll sign off, re-consult as needed.
[2017-04-30] MEDS: Loratadine 10 MG TABLET PO SCH (10:39)
[2017-04-30] MEDS: CLOBETASOL PROPIONATE 15 GM TUBE TP SCH (10:40)
--- NOTE | 2017-04-30 11:28 | Discharge Summary ---
Date of Encounter: 04/30/17 Time of Encounter: 11:15 - Discharge Diagnosis (1) Chest pain Priority: Primary Status: Acute Comments: Patient reports generalized chest pain for 2 weeks. Patient reports that last evening prior to arrival, she had left chest pain is nonradiating, associated with movement, relieved by rest. She reports intermittent nausea, no vomiting, diarrhea, diaphoresis or shortness of breath. She denies chest pain since prior to arrival. Chest x-ray shows mild, nonspecific densities which could be atelectasis or possible bronchitis bronchiolitis. There is no pneumonia noted. Patient denies cough, fever, chills, burning in chest, or shortness of breath that would indicate a viral or bacterial process. Troponins were negative 3. EKG was sinus rhythm with a rate of 72, MT interval 149, QRS 96, QTC 411. Echocardiogram in September, as stated above. Stress test was positive for ischemia, there is a small sized, mildly intense reversible anteroapical defect consistent with mild ischemia. Patient has a gated EF of 55%. There is no evidence of TID, no LV dilation, no high risk features. Pt was seen by cardiology, they recommend [facility]. Pt was initially agreeable , however, she then states that she wants to go to [place] to have it done. Cardiology has signed off. Will send pt home with rx for nitroglycerin tablets and she will follow up with her berry picker. Qualifiers: Chest pain type: unspecified Qualified Code(s): R07.9 - Chest pain, unspecified (2) Mitral valve prolapse Priority: Secondary Status: Acute Comments: Asymptomatic. Patient was seen by cardiology, they have signed off and pt will follow up with cardiology outpatient. Patient had echocardiogram in September, that showed normal systolic function with an LVEF of 60%, mild LV DD, mildly dilated left atrium, [id number] AR, mild MR, mild pulmonary hypertension with an estimated RVSP 38. (3) DVT prophylaxis Priority: Secondary Status: Acute Comments: Early ambulation, SCDs ordered. - Discharge Medications Prescriptions: Nitroglycerin 0.4 mg SL Q5MIN PRN #20 tab.subl PRN Reason: Chest Pain Home Medications: Atorvastatin Calcium [Lipitor] 20 mg PO HS 08/31/16 [History] Cetirizine HCl 10 mg PO DAILY 08/31/16 [History] Cyanocobalamin (Vitamin B-12) [Vitamin B12] 1,000 mcg PO 2XW 08/31/16 [History] Lisinopril [Zestril] 5 mg PO DAILY 08/31/16 [History] Omeprazole [PriLOSEC] 20 mg PO DAILY 08/31/16 [History] Ibuprofen [Motrin] 600 mg PO Q6HR #20 tab 09/03/16 [Rx] Carvedilol 12.5 mg PO BID 04/28/17 [History] Clobetasol Propionate [Temovate] 15 gm TP HS 04/28/17 [History] Gentamicin Oint [Garamycin] 1 appl TP HS 04/28/17 [History] predniSONE [PredniSONE] 10 mg PO AD 04/28/17 [History] Nitroglycerin 0.4 mg SL Q5MIN PRN #20 tab.subl 04/30/17 [Rx] Allergies/Adverse Reactions: 3 Allergy/AdvReac Type Severity Reaction Status Date / Time apixaban [From Eliquis] Allergy Hives Verified 04/28/17 10:11 cefdinir Allergy Hives Verified 04/28/17 10:11 codeine Allergy Hives Verified 04/28/17 10:11 naproxen [From Naprosyn] Allergy Hives Verified 04/28/17 10:11 Penicillins Allergy Hives Verified 04/28/17 10:11 rivaroxaban [From Xarelto] Allergy Hives Verified 04/28/17 10:11 Sulfa (Sulfonamide Allergy Hives Verified 04/28/17 10:11 Antibiotics) Warfarin [From Coumadin] Allergy Hives Verified 04/28/17 10:11 Procedures/tests Complete & Pending: Procedures Performed prior 72 hours Category Date Time Status NM magaly perf SPECT multi [NM] Routine Exams 04/29/17 09:15 Taken SP pharm nuclear stress Routine Y 04/29/17 09:15 Completed Date of admission: 04/28/17 13:57 Primary care physician: Fly Stevenson DO Consults: 04/29/17 14:31 Consult to Cardiology [CONS] Routine Comment: Consulting Provider: Cardiology Divya Reason for Consult: abnormal stress Time Notified: 14:31 Call Completed: Yes Discharging clinician: Hermila Davis Anticipated date of discharge: 04/30/17 - Patient Status Disposition: Home, Self-Care Condition: Good Functional capacity at discharge: independent ambulation Overall status at discharge: patient is back to baseline - Discharge Instructions Follow Up With: Fly Stevenson DO [Primary Care Provider] - Additional Instructions: Please follow up with your PCP and with cardiology as scheduled. Return to the ER immediately if your symptoms return or for any other problems or concerns. Take your normal home medications. Use nitroglycerin under your tongue as needed for chest pain. Take 1 tablet every 5 minutes until your pain subsides. Do not take more than 5 tablets. Return to your normal diet and activities as tolerated. - Diet and Activity Activity: increase activity as tolerated Diet: advance to your usual diet Interval History: Please see assessment and plan for hospital course. Hospital course: Ms. Gooden is a 61 year old female - Time Spent with Patient Total time spent providing and/or coordinating discharge services: - Constitutional Vitals: Temp Pulse Resp BP Pulse Ox 98.1 F 77 16 139/81 100 04/30/17 07:04 04/30/17 07:04 04/30/17 07:04 04/30/17 07:05 04/30/17 07:04 General appearance: Present: cooperative, A&O X 3, pleasant, no acute distress, answers questions appropriately - Head Head exam: Present: atraumatic, normal inspection, normocephalic - Eye Eye exam: Present: normal appearance, conjuntiva pink, sclera anicteric - Neck Neck exam general surgery: Present: supple, trachea midline. Absent: lymphadenopathy - Respiratory Respiratory exam: Present: CTAB. Absent: accessory muscle use, chest wall tenderness, decreased breath sounds, rales, respiratory distress, rhonchi, wheezes - Cardiovascular Cardiovascular exam: Present: RRR, +S1, +S2. Absent: diastolic murmur, gallop, rubs, systolic murmur - GI/Abdominal GI/Abdominal exam: Present: normal bowel sounds, soft. Absent: distended, hepatomegaly, tenderness - Extremities Exam Extremities exam: Present: normal capillary refill, normal inspection, warm, radial pulses palpable and symmetrical. Absent: calf tenderness, cyanotic, pedal edema, tenderness - Neurological Exam Neurological exam: Present: alert, oriented X3, no focal deficits, strengths equal and symetr throughout. Absent: facial droop, speech deficit - Skin Skin exam: Present: dry, intact, normal color, warm. Absent: rash - VTE Documentation of Mechanical Device: Intermittent pneumatic compression device
[2017-04-30 11:40] VITALS: BP 129/77
[2017-05-01] MEDS ORDERED: Cyanocobalamin (B-12) 1,000 MCG TABLET PO SCH (09:00)
== END 2017-04-30 13:45 | disposition home or self-care (01) ==
LOC: 3BNU 10:10 → EMEROO 10:10 → 3BNU 15:48
PROVIDERS: ADMIT Internal Medicine; ATTEND Registered Nurse

== ENCOUNTER 2017-05-02 09:26 | Inpatient (IN) ==
[2017-05-02] MEDS ORDERED: Aspirin 81 MG TAB.CHEW PO ONE (09:37)
--- NOTE | 2017-05-02 10:13 | Emergency Department Note ---
Disposition Clinical Impression: Stable angina, Unstable angina pectoris Disposition: Admitted As Inpatient Condition: Good Forms: ED Satisfaction Letter Time of Disposition: 10:22 Chest Pain HPI - General Chief Complaint: ED Chest Pain Stated Complaint: CP Time Seen by Provider: 05/02/17 09:29 Source: patient Limitations: no limitations Vital Signs Reviewed: Yes Nursing Notes Reviewed: Yes - History of Present Illness HPI Narrative: 61-year-old female presents to the ED complaining of chest pain and generalized weakness. She is currently not having any chest pain at this time. Patient was admitted over the weekend for the similar issue she did have a talk with cardiology where they were going to a heart catheter on Monday she however decided not to and was given have one at [facility]. She followed up with her primary care physician to set that up today after talking with her and the primary care physician they decided to have it done here and she should come in to the emergency department as she did have a heart catheter done today. Patient is not having any chest pain at this time or any shortness of breath but she does feel weak. She is not short of breath, abdominal pain, nausea or vomiting, pain or tingling of the arms or legs, numbness, change in bowel movements or pain with urination, fevers, headaches or blurry vision. Severity scale (1-10): 3 - Related Data Home Medications Medication Instructions Recorded Confirmed Atorvastatin Calcium [Lipitor] 20 mg PO HS 08/31/16 04/28/17 Cetirizine HCl 10 mg PO DAILY 08/31/16 04/28/17 Cyanocobalamin (Vitamin B-12) 1,000 mcg PO 2XW 08/31/16 04/28/17 [Vitamin B12] Lisinopril [Zestril] 5 mg PO DAILY 08/31/16 04/28/17 Omeprazole [PriLOSEC] 20 mg PO DAILY 08/31/16 04/28/17 Carvedilol 12.5 mg PO BID 04/28/17 04/28/17 Clobetasol Propionate [Temovate] 15 gm TP HS 04/28/17 04/28/17 Gentamicin Oint [Garamycin] 1 appl TP HS 04/28/17 04/28/17 predniSONE [PredniSONE] 10 mg PO AD 04/28/17 04/28/17 Previous Rx's Medication Instructions Recorded Ibuprofen [Motrin] 600 mg PO Q6HR #20 tab 09/03/16 Nitroglycerin 0.4 mg SL Q5MIN PRN #20 tab.subl 04/30/17 Allergies Allergy/AdvReac Type Severity Reaction Status Date / Time apixaban [From Eliquis] Allergy Hives Verified 04/28/17 10:11 cefdinir Allergy Hives Verified 04/28/17 10:11 codeine Allergy Hives Verified 04/28/17 10:11 naproxen [From Naprosyn] Allergy Hives Verified 04/28/17 10:11 Penicillins Allergy Hives Verified 04/28/17 10:11 rivaroxaban [From Xarelto] Allergy Hives Verified 04/28/17 10:11 Sulfa (Sulfonamide Allergy Hives Verified 04/28/17 10:11 Antibiotics) Warfarin [From Coumadin] Allergy Hives Verified 04/28/17 10:11 Review of Systems: 10 point review of systems done and negative unless otherwise stated in history of present illness. All systems ED: reviewed and negative except as stated. Review of Systems: As Per HPI Chest Pain PMH - Past Medical History Medical history: Reports: CVA, GERD, hypertension, kidney stones, other Surgical history: Reports: cholecystectomy, hysterectomy, other Psychiatric history: Reports: no psych history - Social History Smoking Status: Never smoker Alcohol use: Reports: none Drug use: Reports: none Physical Exam - General Limitations: no limitations General appearance: alert, in no apparent distress - Head Head exam: atraumatic, normocephalic, normal inspection - Eye Eye exam: Present: normal appearance, PERRL, EOMI - ENT ENT exam: normal exam, normal oropharynx, mucous membranes moist - Neck Neck exam: Present: normal inspection, full ROM, trachea midline - Chest Chest inspection: Present: normal inspection, symmetric chest wall rise - Respiratory Respiratory exam: Present: normal lung sounds bilaterally - Cardiovascular Cardiovascular exam: Present: regular rate, normal rhythm, normal heart sounds - Abdominal Exam Abdominal exam: Present: soft, Non-Tender. Absent: tenderness, distention, guarding, rebound, rigidity - Extremities Exam Extremities exam: Present: normal inspection, full ROM. Absent: tenderness, pedal edema - Back Exam Back exam: Present: normal inspection, full ROM. Absent: tenderness, CVA tenderness (R), CVA tenderness (L) - Neurological Exam Neurological exam: Present: alert, oriented X3 - Skin Skin exam: Present: warm, dry, intact, normal color Course Course Narrative: 60-year-old female presents to the ED complaining of chest pain. We will get a troponin and contact cardiology to see what they want us to do with this patient. - Consultations Consultation #1: Spoke with the psychologist travel consultant, Dr. Aparicio they recommended getting troponin they will come see the patient admitted to their service to have heart catheter done today they also asked the patient to be nothing by mouth. Time: 10:10 Vital Signs Temperature 97.8 F 05/02/17 09:32 Pulse Rate 72 05/02/17 09:32 Respiratory Rate 18 05/02/17 09:32 Blood Pressure 164/82 05/02/17 09:32 O2 Sat by Pulse Oximetry 98 05/02/17 09:32 Temperature 97.8 F 05/02/17 09:32 Pulse Rate 66 05/02/17 10:21 Respiratory Rate 18 05/02/17 10:21 Blood Pressure 179/90 05/02/17 10:21 O2 Sat by Pulse Oximetry 98 05/02/17 10:21 Oxygen Delivery Oxygen Delivery Room Air Chest Pain - MDM Narrative Medical decision making narrative: 61-year-old female presented to the ED with chest pain and weakness. She was admitted to the hospital this weekend where they did a stress test and echo which was a positive stress test and she is supposed to have catheterization done yesterday. She decided not to and cardio disservice signed off the patient was discharged from the hospital as she is due to [facility]. After speaking with and primary care physician today they recommend doing adhered edema so she came here to have the heart catheterization done today. Spoke with cardiology when she arrived and they said they will come see her admit her to their service for heart catheter is all she is nothing by mouth. Patient last ate at 9:30 last night. They also asked for us to order a troponin and an EKG. they said they have all the other labs and tests that they need based on the weekend. Those were all done. EKG was normal. Troponin is still pending at this time will admit the patient for cardiology she is stable at this time.. - Medical Records Medical records reviewed: Yes I reviewed the patient's medical records. - Lab Data Lab results reviewed: Yes I reviewed the patient's lab results. - EKG Data EKG attestation: Yes I reviewed and interpreted this EKG. EKG results narrative: EKG done at 0 9:30 to review myself and attending shows normal sinus rhythm at a rate of 69, IL interval 153, QRS 101, QTC 411 with a normal axis. There are no acute ST changes, no acute T-wave changes. No signs of heart strain or hypertrophy, heart block. No signs of WPW/Brugada syndrome. Old EKG done 04/28 shows no other acute changes no difference between the 2 EKGs. Heart Score - Score History: Moderately Suspicious EKG: Normal Age: 45-65 Risk Factors: 1-2 risk factors Troponin: Less than normal limit HEART Score Total: 3 Attestation Statement - Attestation Attestation: I, Rivas Lopez DO, examined this patient [id number] and my medical decision-making was reviewed with Dr. Oscar Silva, Resident Physician. I agree with the documented findings, disposition and treatment plan as described except to the extent set forth below. Please see my progress notes for details. 61-year-old female presents emergency room for evaluation of cardiac catheterization. Patient was admitted several days ago for chest discomfort and pain. She is scheduled for diagnostic catheterization on Monday. Patient declined at that time. Patient is back here today because she is a persistence of intermittent symptoms and was concerned. On presentation here vital signs are stable. Patient is alert and speaking full sentences denying chest pain. Physical exam is unremarkable. Immediate consultation was sought to the on- call psychologist and recommended repeat troponin and EKG minimally will put her on the schedule today for catheterization. Patient is otherwise stable. After given here in the emergency room. No other concerns or issues noted at this time. Cardiology provider Nick Pryor Was at the bedside and evaluated the patient here in the emergency room and had no other questions or concerns. Patient is otherwise stable. See detailed documentation of physical exam, and clinical intervention, medical decision-making and disposition of the resident physician's note
--- NOTE | 2017-05-02 12:13 | Cardiology History & Physical ---
<Nick Pryor R - Last Filed: 05/02/17 12:36> Date of Encounter: 05/02/17 Time of Encounter: 09:30 Assessment and Plan (1) Fatigue Current Visit: Yes Status: Acute Per Cardiology: Reports continued fatigue. TSH ok earlier this year. Trop 0.00. Qualifiers: Qualified Code(s): R53.83 - Other fatigue (2) Abnormal nuclear stress test Current Visit: No Status: Acute Per Cardiology: Abnormal nuclear stress test with small, mild intensity reversible anterior apical defect showing mild ischemia from stress test this past weekend. Echo from September 2016 showed EF 60%, moderate diastolic dysfunction, mild to moderate R, mild MR, mild pulmonary hypertension, NSWMA. Patient now desires to proceed with catheterization at [facility]. Recent CBC and BMP stable. Discussed and reviewed with Dr. Aparicio and Dr. Danisha Dietz. All questions answered. Further recommendations after catheterization. History of Present Illness Chief complaint: Fatigue HPI: Ms. Gooden is a 61 year old female I saw him as a consult this past weekend with a relevant past medical history of hypertension, GERD, TIA 2, family history with father with DC and stenting in his 70s. She was seen for abnormal nuclear stress test results. Patient was prepared for left heart catheterization, however after discussion with her decided she like to proceed with catheterization at [facility] as an outpatient and was subsequently discharged to home by primary service. She reports yesterday she "was miserable" and she continued to feel extreme fatigue and tired with no energy. She denies any chest pain. Was seen by her PCP and encouraged to go to ER if develops any worsening symptoms. She reported to the ER because she decided to proceed catheterization at this time. She denies any acute changes in her presentation. Denies any new concerns or complaints. Patient agreeable for catheterization. Upon initial evaluation, patient had reported increased fatigue over the past 3- 4 weeks and dyspnea on exertion climbing steps. She reports increase in overall fatigue. Reports prior to a month ago was very active walking daily 3 miles with no symptoms and actually did a 40 mile bike ride March 2017 with no symptoms. Past Med Surg Social Fam HX - Past Medical History Attestation: Yes The following information was validated with the patient. Source: patient, old records reviewed Medical history: CVA, GERD, hypertension, kidney stones, other Psychiatric history: no psych history - Past Surgical History Surgical History: cholecystectomy, hysterectomy, other - Social History Smoking Status: Never smoker Smokeless Tobacco Status: No Alcohol use: none Drug use: none - Family History Mother Hx Family Cardiac Disorders: Yes (HTN) Hx Family GI Disorders: Yes (ulcers) Medications and Allergies Cetirizine HCl 10 mg PO DAILY 08/31/16 [History] Cyanocobalamin (Vitamin B-12) [Vitamin B12] 1,000 mcg PO 2XW 08/31/16 [History] Lisinopril [Zestril] 5 mg PO DAILY 08/31/16 [History] Omeprazole [PriLOSEC] 20 mg PO DAILY 08/31/16 [History] Ibuprofen [Motrin] 600 mg PO Q6HR #20 tab 09/03/16 [Rx] Carvedilol 12.5 mg PO BID 04/28/17 [History] Clobetasol Propionate [Temovate] 15 gm TP HS 04/28/17 [History] Gentamicin Oint [Garamycin] 1 appl TP HS 04/28/17 [History] predniSONE [PredniSONE] 10 mg PO AD 04/28/17 [History] Nitroglycerin 0.4 mg SL Q5MIN PRN #20 tab.subl 04/30/17 [Rx] Atorvastatin [Lipitor] 40 mg PO HS 05/02/17 [History] 3 Allergy/AdvReac Type Severity Reaction Status Date / Time apixaban [From Eliquis] Allergy Itching Verified 05/02/17 11:37 cefdinir Allergy Itching Verified 05/02/17 11:37 codeine Allergy Itching Verified 05/02/17 11:37 naproxen [From Naprosyn] Allergy Itching Verified 05/02/17 11:37 Penicillins Allergy Itching Verified 05/02/17 11:37 rivaroxaban [From Xarelto] Allergy Itching Verified 05/02/17 11:37 Sulfa (Sulfonamide Allergy Itching Verified 05/02/17 11:37 Antibiotics) Warfarin [From Coumadin] Allergy Itching Verified 05/02/17 11:37 All Systems Review: A 10-system review of systems was performed and is negative for pertinent findings except as documented above in the HPI. - Constitutional Constitutional: fatigue - Cardiovascular Cardiovascular: as per HPI, chest pain at rest, dyspnea on exertion, palpitations Physical Examination Vital Signs, Last 4 Hours Temp Pulse Resp BP Pulse Ox 05/02/17 11:55 98.2 F 64 16 175/82 100 05/02/17 11:52 16 182/91 General: Conversant, No Apparent Distress HEENT: Atraumatic, Normocephaly, Mucus Membranes Moist Neck: No JVD, Normal carotid pulses Cardiac: Reg Rate and Rhythm, Normal S1 and S2, No Murmur Lungs: Normal Breath Sounds, No Wheeze, Rales, Rhonchi Neuro: Alert and responsive, No focal deficits noted Abdomen: Soft, Non-Tender Skin: No rashes noted on visualized skin Musculoskeletal: No Chest Wall Tenderness Extremities: No Clubbing, No Cyanosis, No Edema, Normal Pulses Results Laboratory Tests 05/02/17 10:02 Troponin I 0.00 - Imaging and Cardiology Stress Test: report reviewed Echo: report reviewed - EKG Interpretation EKG results cardiology: personally reviewed, normal ECG, sinus rhythm, no diagnostic ischemia - VTE Reasons for not Prescribing Prophylaxis: Treatment not Indicated - Low risk for VTE <Марина Aparicio - Last Filed: 05/02/17 17:36> Date of Encounter: 05/02/17 - Attending Attestation I have personally performed a face to face evaluation on this patient. I have reviewed and agree with the care plan with DIRECTOR OF PARTNER MARKETING. Ms. Gooden had an abnormal stress test while hospitalized over the weekend. She and her decided to seek outpatient evaluation at [facility] and she was discharged home. However, she returned after being encouraged by PCP to return if she had worsening symptoms. The R/B/A of the procedure were discussed with the patient who expressed understanding and verbalized agreement to proceed. History of Present Illness HPI: Ms. Gooden is a 61 year old female All Systems Review: A 10-system review of systems was performed and is negative for pertinent findings except as documented above in the HPI. Physical Examination Vital Signs, Last 4 Hours Temp Pulse Resp BP Pulse Ox 05/02/17 15:55 97.8 F 72 12 180/88 98
[2017-05-02] MEDS ORDERED: Nitroglycerin 0.4 MG TAB.SUBL SL PRN (16:15)
[2017-05-02] MEDS ORDERED: Naloxone 0.4 MG/ML INJ IVP PRN (16:17)
--- NOTE | 2017-05-02 16:20 | Event Note ---
Date of Encounter: 05/02/17 Time of Encounter: 16:20 - Cardiology Event Note Awaiting [facility]. SBP noted 170's-180's, has not had home meds. Will give home med of ACEI and BB.
--- NOTE | 2017-05-02 17:20 | Pre-Sedation Evaluation ---
Pre-sedation evaluation - Pre-sedation checklist Date of procedure: 05/02/17 Procedure: left heart cath Recent Vitals: Last Vital Signs Temp 97.8 F 05/02/17 15:55 Pulse 72 05/02/17 15:55 Resp 12 05/02/17 15:55 BP 180/88 05/02/17 15:55 Pulse Ox 98 05/02/17 15:55 H&P (including ROS) documented in medical record: Yes Previous reaction to sedatives/anesthetics: No Dietary Status: NPO after Midnight Airway Assessment: Patient can open mouth completely, TMJ function normal, Micrognathia (under-bite, receding chin) absent, Neck with adequate range of motion Dentition: No loose teeth or bridges Possible difficult airway: No ASA Classification *see protocol: CLASS II-Mild systemic disease Plan of Care: Pt appropriate candidate for procedure/moderate/conscious sedation , Risks/benefits of procedure/sedation discussed w/ patient/family
[2017-05-02] MEDS ORDERED: *HR* Heparin 10,000 UNIT/10 ML VIAL ONE (17:24)
[2017-05-02] MEDS ORDERED: 0.9 % Sodium Chloride 1,000 ML ONE ×2 (17:24→18:29)
[2017-05-02] MEDS ORDERED: Nitroglycerin 1,000 MCG/10 ML VIAL IV ONE (17:24)
[2017-05-02] MEDS ORDERED: Heparin 1,000 UNITS/500 mL NS 500 ML ONE (17:24)
[2017-05-02] MEDS ORDERED: *HR* Midazolam HCl 2 MG/2 ML VIAL ONE (18:32)
[2017-05-02] MEDS ORDERED: *HR* FentaNYL (PF) 100 MCG/2 ML VIAL ONE (18:33)
--- NOTE | 2017-05-02 19:07 | Invasive Diagnostic Lab Proc ---
Name: Jazmyne Gooden Date of Study: 05/02/2017 Date: 1955 Ht: 65.0in Medical Record#: [id number] Age: 61 Wt: 178.57lb Gender: Female BSA: 1.88 Order #: [id number] BMI: 29.75 Physicians Procedure Physician: Coco Dietz MD, [facility] Referring MD: Referring MD: Staff Name Position Time In Yane De La Cruz RT (R) Nurse 06:39 PM José Miguel Wick RT (R) Scrub 06:39 PM Santos Samuel RN Interactive Account Manager 06:39 PM Indications Indication Abnormal Test - Stress Procedures Performed Procedure L HRT ARTERY/VENTRICLE ANGIO Pre-Procedure Checklist Informed consent is complete signed and on chart. H&P is on chart. ID band is on and ID verified with patient. Patient NPO for procedure The procedure was described for the patient and questions were answered. Blood Pressure: 187/118 ECG is on chart. Rhythm: NSR Plan of Care Patient will tolerate the procedure without complications. Adequate level of comfort will be maintained. Hemodynamics will remain stable Patient will recover from procedure without complications. Respiratory function will be maintained. Cardiac rhythm will remain stable. Patient temperature will be maintained. Patient and/or family have verbalized understanding of the procedure. Patient Education Chief Complaint/Reason for Test: Cardiac Cath Developmental Category: Adult (18-64 years) Developmentally Appropriate for Age: Yes Learning Barriers: None Education Needs: Procedure Education Method: Verbal Information Taught: Cardiac Cath Educational Evaluation: Able to repeat information Intravenous Access Time IV Size Location DC'd Fluid/Drip Rate Units RN 06:37 PM 18g 1 06/22" Patent On Arrival Lt Antecubital 0.9NaCl 25 ml/hr Allergies Warfarin *HR* CODEINE Cefdinir naproxen codeine Penicillins SULFA (sulfonamide) Vital Signs Time BP (mmHg) HR (bpm) O2 Sat. RR (bpm) LOC 06:38 PM / % 06:40 PM / % 4 = Oriented but drowsy 06:37 PM 187 / 118 76 100 % 27 06:42 PM 155 / 89 69 100 % 38 06:46 PM 157 / 87 68 99 % 15 06:52 PM 165 / 83 71 99 % 13 06:40 PM / % 4 = Oriented but drowsy Procedural Medications Time Medication Dose Units Method Given By 06:40 PM Oxygen 2 L/min nasal cannula Santos Samuel RN 06:40 PM Versed 2 mg Intravenous Santos Samuel RN 06:40 PM Fentanyl 50 mcg Intravenous Santos Samuel RN 06:42 PM Lidocaine 2% 15 ml Subcutaneous Coco Dietz MD, [facility] ASA Classification: CLASS II- Mild systemic disease (i.e. well-controlled diabetes, hypertension, asthma, cigarette smoking) Zohreh Score Preprocedure Postprocedure Activity 2- Moves 4 extremities sustained head lift Activity 2- Moves 4 extremities sustained head lift Circulation 2- SBP +/= 20 points of pre-anesthetic level Circulation 2- SBP +/= 20 points of pre-anesthetic level Consciousness 2- Awake and alert oriented x 3 Consciousness 2- Awake and alert oriented x 3 O2 Saturation 2- Able to maintain O2 satruation of 92% on room air O2 Saturation 2- Able to maintain O2 satruation of 92% on room air Respiratory 2- Able to deep breathe and cough well Respiratory 2- Able to deep breathe and cough well Total Score 10 Total Score 10 Contrast Agent: Isovue Diagnostic Contrast: 57 ml Total Contrast: 57 ml Fluoro Dose: 99 mGy Procedure Log Time Note Enter By 06:36 PM Vitals capture started with the following parameters, Patient=Adult, Interval=5 min, Initial Yoljudlx=283 mmHg, Deflation Rate=5 mmHg, Cuff placed on Right Arm 06:36 PM CathStat 06:37 PM HR=76 bpm, DHDZ=802/118 mmhg, JvN1=356.0 %, Resp=27 B/min, Comment=NSR 06:39 PM Pt arrived to label coder 2 at 18:39 [email or web address] 06:39 PM Yane De La Cruz RT (R) Position: Nurse Time in: 18:39 [email or web address] 06:39 PM José Miguel Wick RT (R) Position: Scrub Time in: 18:39 [email or web address] 06:39 PM Santos Samuel RN Position: Interactive Account Manager Time in: 18:39 [email or web address] 06:39 PM Patient charges- Angio tray pack, Navilyst 3mm J, Pulse Oximetry and ACIST tubing and transducer [email or web address] 06:39 PM Case Delayed No [email or web address] 06:39 PM Hair removed from procedure site in holding area using clippers. Bilateral groin prepped with Chloraprep by Yane De La Cruz RT (R), safety strap applied then patient was draped. Skin intact. [email or web address] 06:39 PM Physician arrived 18:39 [email or web address] 06:39 PM ASA Class CLASS II- Mild systemic disease (i.e. well-controlled diabetes, hypertension, asthma, cigarette smoking) [email or web address] 06:39 PM Meet and william completed [email or web address] 06:39 PM Sign in performed according to hospital policy. [email or web address] 06:39 PM Procedure start 18:39 [email or web address] 06:39 PM Pressure channel 1 zeroed. 06:40 PM Time: 18:40 Oxygen on at 2 L/min per nasal cannula by Santos Samuel RN [email or web address] 06:40 PM Time: 18:40 Versed 2 mg Intravenous Given by Santos Samuel RN [email or web address] 06:40 PM Time: 18:40 Fentanyl 50 mcg Intravenous Given by Santos Samuel RN [email or web address] 06:40 PM Time: 18:40 Patient comfortable and pain free: Yes [email or web address] 06[facility] PM Time: 18:40LOC: 4 = Oriented but drowsy [email or web address] 06:40 PM Recorded ECG: HR=71 Condition=Condition 1 06:41 PM Time out performed according to hospital policy 3 06:42 PM HR=69 bpm, TWYE=660/89 mmhg, UbD0=102.0 %, Resp=38 B/min, Comment=NSR 06:43 PM Time: 18:42 15 ml Lidocaine 2% to right groin Subcutaneous Given by [facility], [facility] 06:44 PM Access obtained by percutaneous puncture. 5Fr 10cm Terumo Ridott sheath placed in right Femoral artery. [id number] [email or web address] 06:44 PM 5Fr FR 4 [email or web address] 06[facility]44 PM 0.035 145cm Navilyst 3mmJ wire [id number] [email or web address] 06:45 PM Recorded Pressure: Ao, HR=67, Condition=Condition 1 (Aorta) Ao 135/79/104 06:45 PM LCA angiography performed in multiple views. [email or web address] 06:46 PM [facility]atheter [email or web address] 06:46 PM 5Fr FR 4 [email or web address] 06:46 PM RCA angiography performed in multiple views. [email or web address] 06:46 PM HR=68 bpm, NHST=507/87 mmhg, SpO2=99.0 %, Resp=15 B/min, Comment=NSR 06:47 PM Recorded Pressure: Ao, HR=66, Condition=Condition 1 (Aorta) Ao 130/75/100 06:48 PM Catheter removed [email or web address] 06:48 PM 5Fr Pigtail catheter inserted over the wire [facility] [email or web address] 06:49 PM Pressure channel 1 zeroed. 06:49 PM Recorded Pressure: LV, HR=69, Condition=Condition 1 (Left Ventricle) LV 126/40/45 06:49 PM Catheter selectively placed in left ventricle [email or web address] 06:49 PM Bolus angiogram of left Ventricle complete: 8 ml/sec for a total of 24 mls [email or web address] 06:49 PM Recorded Pressure: LV, HR=79, Condition=Condition 1 (Left Ventricle) LV 131/36/32 06:50 PM Recorded Pressure: LV, HR=68, Condition=Condition 1 (Left Ventricle) LV 144/11/10 06:50 PM Recorded Pressure: LV, Ao, HR=69, Condition=Condition 1 (Left Ventricle) LV 158/37/59, (Aorta) Ao 136/78/105 06:50 PM Catheter removed [email or web address] 06:51 PM Coronary Dominance: right [email or web address] 06:51 PM Bolus angiogram of right Femoral complete: 4 ml/sec for a total of 7 mls [email or web address] 06:51 PM Procedure completed at 18:51 [email or web address] 06:52 PM HR=71 bpm, ATNR=647/83 mmhg, SpO2=99 %, Resp=13 B/min 06:52 PM Sign out completed: Radiation Dose 98.57 mGy Fluoro Time: 1.1 Isovue 370 - 200ml contrast ml given by Coco Dietz MD, [facility]. Complications: NoneCardiac Rehab Consult needed: NoConfirmed administered medications: No [email or web address] 06:52 PM Isovue 370 - 200ml,1 Bottle(s) used. [email or web address] 06:52 PM Post ECG NSR [email or web address] 06:53 PM Post Blood Pressure 165/83 [email or web address] 06:53 PM Information taught Cardiac Cath and Mynx [email or web address] 06:54 PM Education needs Procedure, Plan of Care, and Disease Process [email or web address] 06:54 PM Learning barriers :None [email or web address] 06:54 PM Education Methods Verbal [email or web address] 06:54 PM Education evaluation Able to repeat information [email or web address] 06:55 PM Opsite applied [email or web address] 06:55 PM Delay to floor No [email or web address] 06:55 PM Family placed in not available. [email or web address] 06:55 PM Complications: None [email or web address] 06:55 PM Time: 18:40 Patient comfortable and pain free: Yes [email or web address] 06:55 PM Time: 18:40LOC: 4 = Oriented but drowsy [email or web address] 06:55 PM Fluoro Time: 1.1 [email or web address] 06:55 PM Isovue 370 - 200ml contrast 57 ml given by Coco Dietz MD, [facility]. [email or web address] 07:00 PM Report given to Emily POLANCO Pt taken to E Room #26. 19:00 [email or web address] 07:00 PM Patient out of room: 19:00 [email or web address] Complications Complication None None Hemodynamics Pressures Site Systolic/A Wave Diastolic/V Wave Mean AO 135 79 104 AO 130 75 100 LV 126 40 45 LV 131 36 32 LV 144 11 10 LV 158 37 59 AO 136 78 105 Post Procedure Information Blood Pressure: 165/83 mmHg Rhythm: NSR Post procedural instructions were not given Closure Device Time Device Success/Fail 05/02/2017 7:00:00 PM MynxGrip Successful Site Checks Time Location Status Staff Sheath In? Note 07:00 PM Rt Groin No bleeding/ No Hematoma José Miguel Wick RT (R) Pulses Time Site Pre-Procedure Post-Procedure Note Bilateral DP & PT 2+ 2+ Updated by RT Bailee(R) on 05/02/2017 7:01:54 PM electronically signed on 05/02/2017 7:02:34 PM with status of Final
[2017-05-02] MEDS: Ibuprofen 600 MG TABLET PO SCH (20:49)
[2017-05-02] MEDS ORDERED: CLOBETASOL PROPIONATE 15 GM TUBE TP SCH (21:00)
[2017-05-03] MEDS: Ibuprofen 600 MG TABLET PO SCH ×2 (00:34→06:04)
[2017-05-03 07:55] VITALS: BP 125/75
--- NOTE | 2017-05-03 07:59 | Discharge Summary ---
Date of Encounter: 05/03/17 Time of Encounter: 08:00 - Discharge Diagnosis (1) Fatigue Priority: Primary Status: Acute Comments: Will f/u with PCP to explore noncardiac causes. Qualifiers: Fatigue type: unspecified Qualified Code(s): R53.83 - Other fatigue (2) Abnormal nuclear stress test Priority: Primary Status: Acute Comments: Recent abnormal stress test. - Discharge Medications Home Medications: Cetirizine HCl 10 mg PO DAILY 08/31/16 [History] Cyanocobalamin (Vitamin B-12) [Vitamin B12] 1,000 mcg PO 2XW 08/31/16 [History] Lisinopril [Zestril] 5 mg PO DAILY 08/31/16 [History] Omeprazole [PriLOSEC] 20 mg PO DAILY 08/31/16 [History] Ibuprofen [Motrin] 600 mg PO Q6HR #20 tab 09/03/16 [Rx] Carvedilol 12.5 mg PO BID 04/28/17 [History] Clobetasol Propionate [Temovate] 15 gm TP HS 04/28/17 [History] Gentamicin Oint [Garamycin] 1 appl TP HS 04/28/17 [History] predniSONE [PredniSONE] 10 mg PO AD 04/28/17 [History] Nitroglycerin 0.4 mg SL Q5MIN PRN #20 tab.subl 04/30/17 [Rx] Atorvastatin [Lipitor] 40 mg PO HS 05/02/17 [History] Allergies/Adverse Reactions: 3 Allergy/AdvReac Type Severity Reaction Status Date / Time apixaban [From Eliquis] Allergy Itching Verified 05/02/17 11:37 cefdinir Allergy Itching Verified 05/02/17 11:37 codeine Allergy Itching Verified 05/02/17 11:37 naproxen [From Naprosyn] Allergy Itching Verified 05/02/17 11:37 Penicillins Allergy Itching Verified 05/02/17 11:37 rivaroxaban [From Xarelto] Allergy Itching Verified 05/02/17 11:37 Sulfa (Sulfonamide Allergy Itching Verified 05/02/17 11:37 Antibiotics) Warfarin [From Coumadin] Allergy Itching Verified 05/02/17 11:37 Date of admission: 05/02/17 12:10 Primary care physician: Fly Stevenson DO Consults: none Discharging clinician: Nick Pryor Anticipated date of discharge: 05/03/17 - Patient Status Disposition: Home, Self-Care Condition: Good Overall status at discharge: patient is progressing back to baseline - Discharge Instructions Follow Up With: Fly Stevenson DO [Primary Care Provider] - Additional Instructions: RISK FACTORS: STOP SMOKING: If you smoke, STOP. Smoking or tobacco use significantly increases your risk of heart disease because nicotine causes the arteries to narrow or constrict. It also causes fats to stick to the artery. Your chances of having a heart attack are greatly increased if you continue to smoke. For more information, call the education line for smoking cessation [id number] EAT A LOW FAT/CHOLESTEROL/SODIUM DIET: This diet may help reduce your chances of having a heart attack. LIFTING: Avoid lifting anything more than 10 pounds for 5-7 days Prior to straining, laughing, sneezing and/or coughing, apply manual pressure directly over insertion site. ACTIVITY: You may walk or climb stairs as tolerated You can resume sexual activity as tolerated In general, you are encouraged to engage in a minimum of 30 minutes or more of moderate intensity physical activity, such as brisk walking, daily or at least 3 -4 times weekly BATHING Do not submerge the site into water (bath tub, hot tub, swimming pool) for 1 week. This can be a source for infection into the blood stream. You may shower after 24 hours SITE CARE: After 24 hours, you may remove the dressing and leave the site open to air. Keep the site clean and dry. Clean gently and pat dry. You can expect bruising and tenderness that gradually resolve within a week or two. Return to work as instructed per your physician Resume driving as instructed per physician Keep all scheduled follow up appointments Resume medications as instructed IMPORTANT: If prescribed a Platelet Aggregation Inhibitor such as, Plavix, Brilinta or Effient: Duration of therapy is minimum one year These medications are often used in combination with Aspirin in prevention of future heart attacks Never discontinue unless consult with your Treasury Manager STROKE (CVA) Risk factors for a stroke are: Age, cigarette smoking, diabetes, excessive alcohol consumption, family history, high blood pressure, overweight, physical inactivity, prior stroke, heart attack, diagnosis of carotid artery stenosis or other artery disease. Warning signs: Sudden numbness or weakness of the face, arm or leg; especially on one side of the body, sudden confusion, trouble speaking or understanding, sudden trouble seeing in one or both eyes, sudden trouble walking, dizziness, loss of balance or coordination, sudden severe headache with no cause. Call 911 or go to the Emergency Room. CONGESTIVE HEART FAILURE: If you have been diagnosed with Congestive Heart Failure (CHF) and your symptoms return, make an appointment with your physician Weigh yourself daily. Notify your physician if you have a weight gain of two or more pounds in one day or five or more pounds in one week. If you experience any difficulty breathing, please call 911 BLEEDING: Although the risk of bleeding is minimal, it can happen. If you have any bleeding from the site, apply firm pressure above the puncture site for 10-15 minutes. If the bleeding does not stop, continue manual pressure and call 911 Contact your physician if: You develop a fever greater than 101 degrees Fahrenheit Your site becomes reddened or has any drainage You have an increase in pain or burning at the site or if a large knot forms at the site. If you experience chest pain, shortness of breath, dizziness, or extreme tiredness, stop the activity and rest. Please notify your physicians office if you experience any of these symptoms and they are not relieved by rest please call 911! - Diet and Activity Diet: low fat, low cholesterol, low salt diet - Hospital Course Hospital course: Ms. Gooden is a 61 year old female recently admitted for LUCERO and fatigue. Had + nuclear stress test. Declined cath and went hime to evaluate cath in [place]. Presented back to the ER wanting to proceed with LHC d/t continued fatigue. Underwent LHC and found to have nonobstructive CAD-- proximal LAD 15%, OM1 25%, proximal RCA 25%, mid RCA 50% lesions. ST considered false +. On asa, statin, BB. Education provided regarding right groin site post-cath orders. Encouraged to follow-up with PCP and follow-up with cardiology as needed. All questions answered. Prepping for discharge home today in stable condition. - Time Spent with Patient Total time spent providing and/or coordinating discharge services: Less than 30 minutes Physical Examination Vital Signs, Last 4 Hours Temp Pulse Resp BP Pulse Ox 05/03/17 07:49 97.8 F 67 12 125/75 99 05/03/17 04:00 97.9 F 68 16 107/56 94 General: Conversant, No Apparent Distress HEENT: Atraumatic, Normocephaly, Mucus Membranes Moist Neck: No JVD, Normal carotid pulses Cardiac: Reg Rate and Rhythm, Normal S1 and S2, No Murmur Lungs: Normal Breath Sounds, No Wheeze, Rales, Rhonchi Neuro: Alert and responsive, No focal deficits noted Abdomen: Soft, Non-Tender Skin: No rashes noted on visualized skin, Other (Right groin site trying intact , no hematoma, no bleeding, no ecchymosis, right dorsalis pedis and posterior tibial pulses 1+ palpable) Musculoskeletal: No Chest Wall Tenderness Extremities: No Clubbing, No Cyanosis, No Edema, Normal Pulses - VTE Reasons for not Prescribing Prophylaxis: Treatment not Indicated - Low risk for VTE
[2017-05-03] MEDS ORDERED: Loratadine 10 MG TABLET PO SCH (09:00)
--- NOTE | 2017-05-03 13:01 | Electrocardiograph Report ---
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
[2017-05-04] MEDS ORDERED: Cyanocobalamin (B-12) 1,000 MCG TABLET PO SCH (09:00)
== END 2017-05-03 11:19 | disposition home or self-care (01) | DRG 287 ==
LOC: EMEROO 09:26 → 2NENU 09:26
PROVIDERS: ADMIT Internal Medicine; ATTEND Internal Medicine

== ENCOUNTER 2019-08-27 18:09 | Inpatient (IN) ==
[2019-08-27] MEDS ORDERED: Nitroglycerin 0.4 MG TAB.SUBL SL PRN (18:30)
[2019-08-27] MEDS ORDERED: Aspirin 81 MG TAB.CHEW PO ONE (18:30)
[2019-08-27 19:24] LABS: Prothrombin Time 11.6 Seconds (9.4-12.1)
[2019-08-27 19:27] LABS: Activated Partial Thrombo Time 32.9 Seconds (26.0-36.0)
[2019-08-27 19:36] LABS: Basophils % 0.2 %; Eosinophils % 0.3 %; Hematocrit 40.9 % (35.3-44.9); Hemoglobin 13.3 g/dL (11.5-15.4); Immature Granulocytes % 0.2 % (0-4); Lymphocytes # 1.3 K/mcL (0.6-4.6); Lymphocytes % 19.6 %; Mean Corpuscular HGB Conc 32.5 g/dL (31.6-35.5); Mean Corpuscular Hemoglobin 30.4 pg (28.0-33.3); Mean Corpuscular Volume 93.4 fL (83.0-100.0); Mean Platelet Volume 11.1 fL (9.4-12.4); Monocytes # 0.4 K/mcL (0.0-1.3); Monocytes % 6.5 %; Neutrophils # 4.8 K/mcL (1.6-8.9); Platelet Count 183 K/mcL (140-400); Red Blood Count 4.38 M/mcL (3.82-4.97); Red Cell Distribution Width 12.4 % (11.5-14.5); Segmented Neutrophils % 73.2 %; White Blood Count 6.5 K/mcL (4.3-11.1)
[2019-08-27] MEDS ORDERED: Isovue-370 500 ML BOTTLE IVP ONE (19:48)
[2019-08-27 19:49] LABS: Bilirubin,Urine Negative (Negative); Blood,Urine Negative (Negative); Clarity,Urine Clear (Clear); Color,Urine Yellow (Yellow); Glucose,Urine (UA) Normal (Normal); Ketones,Urine Negative (Negative); Leukocyte Esterase,Urine Small (Negative); Nitrite,Urine Negative (Negative); PH,Urine 6.5 pH Units (5.0-8.0); Protein,Urine Negative (Neg-Trace); Specific Gravity,Urine 1.015 (1.010-1.025); Urobilinogen,Urine Normal (Normal)
[2019-08-27 19:53] LABS: Bacteria,Urine None Seen per hpf (None-Few); Hyaline Casts,Urine None Seen per lpf (None-Few); RBC,Urine 0-3 per hpf (0-3); Squamous Epithelial Cell,Urine Moderate per lpf (None-Few); WBC,Urine 0-3 per hpf (0-3)
[2019-08-27 19:53] LABS: Albumin 4.4 g/dL (3.5-5.7); Albumin/Globulin Ratio 2.2 (1.1-2.2); Bilirubin,Direct 0.1 mg/dL (0.0-0.2); Bilirubin,Indirect 0.4 mg/dL (0.0-1.0); Bilirubin,Total 0.5 mg/dL (0.3-1.0); Total Protein 6.4 g/dL (6.4-8.9)
[2019-08-27 19:56] LABS: BUN/Creatinine Ratio 29 (6-26); Blood Urea Nitrogen 15 mg/dL (8-23); Calcium 9.1 mg/dL (8.6-10.3); Carbon Dioxide 25 mEq/L (23-29); Chloride 107 mEq/L (98-107); Glucose 95 mg/dL (70-105); Osmolality,Calculated 287 (280-300); Potassium 3.8 mEq/L (3.5-5.1); Sodium 138 mEq/L (136-145); Troponin I < 0.03 ng/mL (< 0.04); eGFR For African Americans > 60 (> 60); eGFR For Non-African Americans > 60 (> 60)
[2019-08-28] MEDS ORDERED: Acetaminophen 325 MG TABLET PO PRN (00:27)
[2019-08-28] MEDS ORDERED: Naloxone 0.4 MG/ML INJ IVP PRN (00:27)
[2019-08-28] MEDS ORDERED: Ondansetron 4 MG/2 ML VIAL IVP PRN (00:27)
[2019-08-28] MEDS ORDERED: *HR* Metoprolol 5 MG/5 ML VIAL IVP PRN (00:38)
[2019-08-28] MEDS ORDERED: carvediloL 6.25 MG TABLET PO ONE (00:45)
[2019-08-28] MEDS ORDERED: lisinopriL 20 MG TABLET PO ONE (00:47)
[2019-08-28 02:27] LABS: INR 1.1; Prothrombin Time 12.3 Seconds (9.4-12.1)
[2019-08-28 02:29] LABS: Basophils % 0.4 %; Eosinophils # 0.1 K/mcL (0.0-0.6); Eosinophils % 1.3 %; Hemoglobin 13.4 g/dL (11.5-15.4); Immature Granulocytes % 0.2 % (0-4); Lymphocytes # 1.9 K/mcL (0.6-4.6); Lymphocytes % 33.5 %; Mean Corpuscular HGB Conc 32.7 g/dL (31.6-35.5); Mean Corpuscular Hemoglobin 30.5 pg (28.0-33.3); Mean Corpuscular Volume 93.4 fL (83.0-100.0); Mean Platelet Volume 10.8 fL (9.4-12.4); Monocytes # 0.4 K/mcL (0.0-1.3); Monocytes % 7.6 %; Neutrophils # 3.2 K/mcL (1.6-8.9); Platelet Count 171 K/mcL (140-400); Red Blood Count 4.39 M/mcL (3.82-4.97); Red Cell Distribution Width 12.4 % (11.5-14.5); White Blood Count 5.6 K/mcL (4.3-11.1)
[2019-08-28 02:36] LABS: BUN/Creatinine Ratio 27 (6-26); Blood Urea Nitrogen 13 mg/dL (8-23); Carbon Dioxide 26 mEq/L (23-29); Chloride 106 mEq/L (98-107); Chol/HDL Ratio 1.9 (0-4.9); Cholesterol 123 mg/dL (< 200); Glucose 97 mg/dL (70-105); HDL Cholesterol 65 mg/dL (40-59); LDL Cholesterol,Calculated 49 mg/dL (0-99); Magnesium 2.1 mg/dL (1.6-2.6); Osmolality,Calculated 288 (280-300); Phosphorous 3.1 mg/dL (2.7-4.5); Potassium 3.4 mEq/L (3.5-5.1); Sodium 139 mEq/L (136-145); Triglycerides 43 mg/dL (< 150); eGFR For African Americans > 60 (> 60); eGFR For Non-African Americans > 60 (> 60)
[2019-08-28] MEDS: *HR* Heparin 5,000 UNIT/ML VIAL SQ SCH ×3 (05:45→21:05)
[2019-08-28 06:03] LABS: Thyroid Stimulating Hormone 1.968 mcIU/mL (0.340-5.600)
[2019-08-28] MEDS: carvediloL 6.25 MG TABLET PO SCH ×2 (10:00→17:21)
[2019-08-28] MEDS: FluocinoNIDE 0.05% CRM 15 GM TUBE TP SCH ×3 (10:00→21:05)
[2019-08-28] MEDS: lisinopriL 20 MG TABLET PO SCH ×2 (10:00→21:05)
[2019-08-28] MEDS: Loratadine 10 MG TABLET PO SCH (10:00)
[2019-08-28] MEDS ORDERED: Gentamicin Oint 15 GM TUBE TP SCH (21:00)
[2019-08-29] MEDS ORDERED: Regadenoson 0.4 MG/5 ML SYRINGE IVP ONE (06:22)
[2019-08-29] MEDS: *HR* Heparin 5,000 UNIT/ML VIAL SQ SCH ×3 (06:22→21:44)
[2019-08-29] MEDS: lisinopriL 20 MG TABLET PO SCH ×2 (09:07→22:00)
[2019-08-29] MEDS: carvediloL 6.25 MG TABLET PO SCH (09:07)
[2019-08-29] MEDS: Loratadine 10 MG TABLET PO SCH (09:07)
[2019-08-29 09:27] LABS: Hematocrit 44.4 % (35.3-44.9); Hemoglobin 14.4 g/dL (11.5-15.4); Mean Corpuscular HGB Conc 32.4 g/dL (31.6-35.5); Mean Corpuscular Hemoglobin 30.4 pg (28.0-33.3); Mean Corpuscular Volume 93.7 fL (83.0-100.0); Mean Platelet Volume 10.6 fL (9.4-12.4); Platelet Count 179 K/mcL (140-400); Red Blood Count 4.74 M/mcL (3.82-4.97); Red Cell Distribution Width 12.2 % (11.5-14.5); White Blood Count 4.1 K/mcL (4.3-11.1)
[2019-08-29 09:42] LABS: BUN/Creatinine Ratio 28 (6-26); Blood Urea Nitrogen 15 mg/dL (8-23); Calcium 9.1 mg/dL (8.6-10.3); Carbon Dioxide 29 mEq/L (23-29); Chloride 106 mEq/L (98-107); Glucose 102 mg/dL (70-105); Osmolality,Calculated 289 (280-300); Potassium 3.7 mEq/L (3.5-5.1); Sodium 139 mEq/L (136-145); eGFR For African Americans > 60 (> 60); eGFR For Non-African Americans > 60 (> 60)
[2019-08-29] MEDS: FluocinoNIDE 0.05% CRM 15 GM TUBE TP SCH ×2 (15:19→22:01)
[2019-08-29] MEDS ORDERED: Acetaminophen IV 1,000 MG/100 ML INFUS..BTL ONE (15:25)
[2019-08-29] MEDS ORDERED: Famotidine 20 MG/2 ML VIAL ONE (15:25)
[2019-08-29] MEDS ORDERED: *HR* Midazolam HCl 2 MG/2 ML VIAL ONE (15:41)
[2019-08-29] MEDS ORDERED: *HR* FentaNYL (PF) 100 MCG/2 ML VIAL ONE (15:41)
[2019-08-29] MEDS ORDERED: Clindamycin 900 MG/50 ML 900 MG/50 ML IV.SOLN IVPB ONE (16:23)
[2019-08-29] MEDS ORDERED: *HR* HYDROmorphone PF 0.5 MG/0.5 ML SYRINGE IVP PRN (16:47)
[2019-08-29] MEDS ORDERED: Ondansetron 4 MG/2 ML VIAL IVP ONE (16:47)
[2019-08-29] MEDS ORDERED: *HR* Promethazine 25 MG/ML VIAL IVP PRN (16:47)
[2019-08-29] MEDS ORDERED: EPHEDrine 50 MG/ML VIAL ONE (16:51)
[2019-08-29] MEDS ORDERED: *HR* Rocuronium Bromide 50 MG/5 ML VIAL ONE (16:57)
[2019-08-29] MEDS ORDERED: Ringers Solution, Lactated 1,000 ML ONE (19:00)
[2019-08-29] MEDS: *HR* Labetalol 20 MG/4 ML SYRINGE IVP PRN ×2 (19:01→19:13)
[2019-08-29] MEDS ORDERED: *HR* Metoprolol 5 MG/5 ML VIAL IVP PRN (20:08)
[2019-08-29] MEDS ORDERED: Naloxone 0.4 MG/ML INJ IVP PRN (20:08)
[2019-08-29] MEDS: Gentamicin Oint 15 GM TUBE TP SCH (22:00)
[2019-08-29] MEDS: Ondansetron 4 MG/2 ML VIAL IVP PRN (22:06)
[2019-08-29] MEDS: Acetaminophen IV 1,000 MG/100 ML INFUS..BTL IVPB SCH (23:49)
[2019-08-30] MEDS ORDERED: Ketorolac 15 MG/ML VIAL IVP SCH
[2019-08-30] MEDS: Acetaminophen IV 1,000 MG/100 ML INFUS..BTL IVPB SCH ×4 (05:35→23:55)
[2019-08-30] MEDS: *HR* Heparin 5,000 UNIT/ML VIAL SQ SCH ×3 (07:44→21:37)
[2019-08-30] MEDS: lisinopriL 20 MG TABLET PO SCH ×2 (07:45→21:37)
[2019-08-30] MEDS: FluocinoNIDE 0.05% CRM 15 GM TUBE TP SCH ×3 (07:45→21:36)
[2019-08-30] MEDS: Loratadine 10 MG TABLET PO SCH (07:46)
[2019-08-30] MEDS ORDERED: carvediloL 6.25 MG TABLET PO SCH (08:00)
[2019-08-30] MEDS ORDERED: predniSONE 10 MG TABLET PO SCH ×2 (09:00)
[2019-08-30 09:43] LABS: Hematocrit 44.2 % (35.3-44.9); Hemoglobin 14.8 g/dL (11.5-15.4); Mean Corpuscular HGB Conc 33.5 g/dL (31.6-35.5); Mean Corpuscular Volume 92.7 fL (83.0-100.0); Mean Platelet Volume 10.9 fL (9.4-12.4); Platelet Count 188 K/mcL (140-400); Red Blood Count 4.77 M/mcL (3.82-4.97); Red Cell Distribution Width 12.1 % (11.5-14.5)
[2019-08-30 09:44] LABS: White Blood Count 9.8 K/mcL (4.3-11.1)
[2019-08-30 10:02] LABS: BUN/Creatinine Ratio 25 (6-26); Blood Urea Nitrogen 15 mg/dL (8-23); Carbon Dioxide 25 mEq/L (23-29); Chloride 101 mEq/L (98-107); Glucose 105 mg/dL (70-105); Osmolality,Calculated 281 (280-300); Potassium 4.1 mEq/L (3.5-5.1); Sodium 135 mEq/L (136-145); eGFR For African Americans > 60 (> 60); eGFR For Non-African Americans > 60 (> 60)
[2019-08-30] MEDS: carvediloL 6.25 MG TABLET PO SCH (17:19)
[2019-08-30] MEDS: Gentamicin Oint 15 GM TUBE TP SCH (21:36)
[2019-08-30] MEDS: Ondansetron 4 MG/2 ML VIAL IVP PRN (21:37)
[2019-08-31] MEDS: carvediloL 6.25 MG TABLET PO SCH ×2 (01:25→06:59)
[2019-08-31 03:05] LABS: Hematocrit 42.5 % (35.3-44.9); Mean Corpuscular HGB Conc 32.9 g/dL (31.6-35.5); Mean Corpuscular Hemoglobin 30.6 pg (28.0-33.3); Mean Corpuscular Volume 92.8 fL (83.0-100.0); Mean Platelet Volume 10.9 fL (9.4-12.4); Platelet Count 189 K/mcL (140-400); Red Blood Count 4.58 M/mcL (3.82-4.97); Red Cell Distribution Width 12.5 % (11.5-14.5); White Blood Count 8.8 K/mcL (4.3-11.1)
[2019-08-31 03:24] LABS: BUN/Creatinine Ratio 22 (6-26); Blood Urea Nitrogen 13 mg/dL (8-23); Calcium 8.7 mg/dL (8.6-10.3); Carbon Dioxide 26 mEq/L (23-29); Chloride 103 mEq/L (98-107); Glucose 122 mg/dL (70-105); Osmolality,Calculated 281 (280-300); Potassium 3.5 mEq/L (3.5-5.1); Sodium 135 mEq/L (136-145); eGFR For African Americans > 60 (> 60); eGFR For Non-African Americans > 60 (> 60)
[2019-08-31] MEDS: Acetaminophen IV 1,000 MG/100 ML INFUS..BTL IVPB SCH (05:40)
[2019-08-31] MEDS: *HR* Heparin 5,000 UNIT/ML VIAL SQ SCH (05:40)
[2019-08-31 06:55] VITALS: BP 149/74
[2019-08-31] MEDS: FluocinoNIDE 0.05% CRM 15 GM TUBE TP SCH (06:59)
[2019-08-31] MEDS: lisinopriL 20 MG TABLET PO SCH (06:59)
[2019-08-31] MEDS: Loratadine 10 MG TABLET PO SCH (06:59)
== END 2019-08-31 10:47 | disposition home or self-care (01) | DRG 326 ==
LOC: 3BNU 18:09 → EMEROOARM 18:09 → 3BNU 08-28 00:10
PROVIDERS: ADMIT Student in an Organized Health Care Education/Training Program; ATTEND Student in an Organized Health Care Education/Training Program